=== PATIENT | male | born 1935 | race Caucasian/White ===

== ENCOUNTER 2017-01-09 14:37 | Inpatient (IN) | payer MEDICARE, OTHER ==
[~2017-01-09] VITALS: Ht 190.5 cm; Wt 93.9 kg
[2017-01-12] MEDS ORDERED: BUME0.5T PO (16:02)
[2017-01-12] MEDS ORDERED: FLEC1TAB9 PO (16:02)
[2017-01-12] MEDS ORDERED: LEVO50TA4 PO (16:02)
[2017-01-12] MEDS ORDERED: TERA2CAP3 PO (16:02)
[2017-01-12] MEDS ORDERED: ROSU10 PO (16:02)
[2017-01-12] MEDS ORDERED: DICL75TA PO (16:02)
[2017-01-12] MEDS ORDERED: METF500T PO (16:02)
[2017-01-12] MEDS ORDERED: OMEGCAP PO (16:02)
[2017-01-12] MEDS ORDERED: APIX5TAB PO (16:02)
[2017-01-12] MEDS ORDERED: LISI2.5T3 PO (16:02)
--- NOTE | 2017-01-28 07:03 | HHI.DCPOC ---
Discharge Care Plan Diagnosis: (1) Status post total hip replacement, left (2) Osteoarthritis of left hip Your Health Problems Are: Difficulty with ADL Goals to Promote Your Health * To prevent worsening of your condition and complications * To maintain your health at the optimal level Directions to Meet Your Goals Take your medications as prescribed Follow your dietary instruction Follow activity as directed Keep your appointments as scheduled Take your immunizations and boosters as scheduled If your symptoms worsen call your PCP, if no PCP go to Urgent Care Center or Emergency Room Smoking is Dangerous to Your Health. Avoid second hand smoke Call the 24-hour hour crisis hotline for domestic abuse at Jonny Patiño Jan 28, 2017 07:03
--- NOTE | 2017-01-28 07:03 | HHI.FF ---
Face to Face Verification Diagnosis: (1) Osteoarthritis of left hip (2) Status post total hip replacement, left Physical Therapy Gait training, Transfer training, bed to chair Hip: Total hip Left LE Weight Bearing: WB as tolerated Left LE Range of Motion: Active ROM Nursing Nursing: Dressing changes Dressing Changes: Daily dressing change I have seen patient Nadira Chavez on 01/28/17. My clinical findings support the need for the requested home health care services because: Limited ability to care for self High risk of falls I certify that my clinical findings support that this patient is homebound because: Post-op weakness Unsteady gait/balance Jonny Patiño Jan 28, 2017 07:03
[2017-01-28] MEDS ORDERED: COMMODE 3-IN-11 MIS (07:04)
[2017-01-28] MEDS ORDERED: WALKER WHEELS/F1 MIS (07:04)
[2017-01-28] MEDS ORDERED: DEXAMETHASONE SOD PHOS 20 MG/5 ML VIAL ONE (08:35)
[2017-01-28 08:38] VITALS: BP 166/92; PULSE 68; RESP 18; TEMP 98.6; O2SAT 100
[2017-01-28] MEDS ORDERED: SODIUM CHLORIDE 0.9% IV SCH (08:45)
[2017-01-28] MEDS ORDERED: METOPROLOL TARTRATE 25 MG TAB PO PRN (08:45)
[2017-01-28] MEDS ORDERED: SODIUM CHLORID 0.9% 500 ML IV SCH (08:45)
[2017-01-28] MEDS ORDERED: TRANEXAMIC ACID IV SCH (08:45)
[2017-01-28] MEDS ORDERED: INSULIN HUMAN REGULAR 1,000 UNITS/10 ML VIAL SQ PRN (08:45)
[2017-01-28] MEDS ORDERED: ceFAZolin 2 GM PREMIX 50 ML IV SCH (08:45)
[2017-01-28] MEDS ORDERED: VANCOMYCIN 1000 MG/NS 250 ML (for <70 kg) IV SCH ×2 (08:45)
[2017-01-28] MEDS: POVIDONE IODINE 7.5% SCRUB 118 ML BOTTLE TOPICAL SCH (08:45)
[2017-01-28] MEDS: LACTATED RINGER'S 1000 ML IV SCH (09:00)
[2017-01-28] MEDS ORDERED: GENTAMICIN SULFATE 80 MG/2 ML VIAL ONE (09:30)
[2017-01-28] MEDS ORDERED: EXPAREL PERI-ARTICULAR INJECTION (TOTAL VOL. 60 ML) P-ARTICULR SCH ×2 (10:00)
[2017-01-28] MEDS ORDERED: FAMOTIDINE 20 MG/2 ML VIAL ONE (10:06)
[2017-01-28] MEDS ORDERED: MIDAZOLAM HCL 2 MG/2 ML VIAL ONE (10:06)
[2017-01-28] MEDS ORDERED: ACETAMINOPHEN 1000 MG/100 ML VIAL IV ONE (10:06)
[2017-01-28] MEDS ORDERED: fentaNYL CITRATE 250 MCG/5 ML AMP ONE (10:06)
[2017-01-28] MEDS ORDERED: ONDANSETRON HCL 4 MG/2 ML VIAL IV PUSH ONE (12:00)
[2017-01-28] MEDS ORDERED: ePHEDrine/NS 25 MG/5 ML SYR IV ONE (12:00)
[2017-01-28] MEDS ORDERED: NEOSTIGMINE 3 MG/3 ML SYR IV ONE (12:00)
[2017-01-28] MEDS ORDERED: PROPOFOL 200 MG/20 ML AMP IV ONE (12:00)
[2017-01-28] MEDS ORDERED: LACTATED RINGER'S 1000 ML INJ 1,000 ML IV ONE (12:00)
[2017-01-28] MEDS ORDERED: SODIUM CHLORIDE 0.9% FLUSH 5 ML FLUSH IVF PRN (12:30)
[2017-01-28] MEDS ORDERED: ALUMINUM/MAGNESIUM/SIMETH 30 ML CUP PO PRN (12:30)
[2017-01-28] MEDS ORDERED: ZOLPIDEM TARTRATE 5 MG TAB PO PRN (12:30)
[2017-01-28] MEDS ORDERED: Post-op Orders (for Pharmacy) MISC XX ONE (12:30)
[2017-01-28] MEDS ORDERED: NALOXONE HCL 0.4 MG/ML AMP IV PRN (12:30)
[2017-01-28] MEDS ORDERED: BISACODYL 10 MG SUPP RECTAL PRN (12:30)
[2017-01-28] MEDS ORDERED: ONDANSETRON HCL 4 MG/2 ML VIAL IVP PRN (12:30)
[2017-01-28] MEDS ORDERED: MORPHINE SULFATE 4 MG/ML INJ IV PUSH PRN (12:30)
[2017-01-28] MEDS ORDERED: diphenhydrAMINE HCL 50 MG/ML VIAL IV PRN (12:30)
[2017-01-28] MEDS ORDERED: ENOXAPARIN SODIUM 40 MG/0.4 ML SYRINGE SQ SCH (12:30)
[2017-01-28] MEDS ORDERED: MAGNESIUM HYDROXIDE SUSP 30 ML CUP PO PRN (12:30)
[2017-01-28] MEDS ORDERED: ACETAMINOPHEN/HYDROcodone 325 MG/5 MG TAB PO PRN (12:30)
[2017-01-28] MEDS ORDERED: NORC5TAB PO (12:35)
--- NOTE | 2017-01-28 12:38 | PD.OP ---
cc: Emanuel Whitaker MD Operative Report Date of Surgery: Jan 28, 2017 Preoperative Diagnosis: Left hip severe osteoarthritis. Postoperative Diagnosis: Same Procedure: Left total hip arthroplasty Anesthesia: Gen. Surgeon: Emanuel Whitaker Deposit Refund Clerk(s): BERTHA Francis The surgical procedure was assisted by my Advanced Registered Nurse Practitioner. My WASHING TUB OPERATOR presence was necessary throughout this case for the manipulation and positioning of the surgical extremity. My WASHING TUB OPERATOR was assisting me throughout the duration of this procedure. The skill set of an Advance Registered Nurse Practitioner was medically necessary to complete this procedure. During the surgical case, the surgical oncologist was working at the back table and the Advance Registered Nurse Practitioner was directly assisting me. Operation and Findings: IMPLANT DESCRIPTION: 1. Mullen Gription Cup, acetabular size 58. 2. Mullen AltrX polyethylene, neutral. 4. Corail femoral stem size 15, no collar, high offset. 5. Femoral head/neck metal, 36, +5. ESTIMATED BLOOD LOSS: 350 cc. JUSTIFICATION FOR PROCEDURE: The patient has end-stage osteoarthritis to the hip. There is an attached conservative measures pathway form in the chart that describes the nonoperative measures that were undertaken prior to consideration of surgical management. The patient understood the risks and benefits of surgical management. See my office notes for further details. PROCEDURE: The patient was brought back to the operative theatre. Adequate anesthesia was obtained. The patient received intravenous vancomycin and Ancef. The patient was carefully placed on the operative table. The lower extremity was prepped and draped in the usual sterile fashion. Fluoroscopic images were obtained. We made a standard anterior incision over the hip. We dissected through the TFL fascia, exposing the anterior capsule. Arthrotomy was performed in a T-shaped fashion. The capsule was tagged with a #2 FiberWire. End-stage arthritis was identified. Osteotomy was performed through the femoral neck exposing the acetabulum. Remnants of the labrum were resected and osteophytes were removed. We sequentially reamed the acetabulum. We trialed the hip and placed the final cup into position. This was done under fluoroscopic guidance to obtain the appropriate inclination and anteversion. A manhole cover was placed into the acetabular component. We then placed the final polyethylene into position and confirmed that it was well seated. Capsular attachments on the calcar and the inner aspect of the greater trochanter were resected. On the proximal aspect of the femur we used a rongeur , box osteotome, canal finder, sequential broaches and lateralizing rasp. We calcar planed the proximal femur. Then thoroughly irrigated the wound. We trialed the hip with the appropriate size stem. We placed the final stem in to position and trialed again. The hip was stable while it was externally rotated 70 degrees when the leg was lowered to the floor. The final head was applied, and final fluoroscopic images were obtained. The wound was thoroughly irrigated again. Interarticular injection of liposomal bupivacaine was given. The capsule was closed with #2 FiberWire and #1 Vicryl. The deep fascia was closed with a #2 Stratafix, followed by 2-0 Vicryl in the skin and miguel. Postop plan is to weight-bear as tolerated. DVT prophylaxis will be performed with MAI Castro, early mobilization, and resuming Eliquis at a dose of 2.5 mg by mouth twice a day for 7 days and then the patient will resume the preoperative fall dose of 5 mg by mouth twice a day afterwards. The family has been instructed on these orders. Emanuel Whitaker MD Jan 28, 2017 12:38
[2017-01-28] MEDS ORDERED: *morphine SULFATE 8 MG/ML PERIprocedure ONLY ONE ×2 (13:17→13:52)
[2017-01-28] MEDS ORDERED: DO NOT ADM ANY ANTICOAGULANT DRUGS PRN (13:45)
--- NOTE | 2017-01-28 13:49 | RADRPT ---
EXAM DATE/TIME: 01/28/2017 13:05 [facility] COMPARISON: No previous studies available for comparison. INDICATIONS : Post op left hip surgery. MEDICAL HISTORY : Hypertension. Diabetes mellitus type I. SURGICAL HISTORY : Pacemaker. ENCOUNTER: Initial ACUITY: 1 day PAIN SCORE: Non-responsive. LOCATION: Left hip. FINDINGS: A left hip arthroplasty is present. The alignment is anatomic.. Previous right arthroplasty is presen t. CONCLUSION: 1. Postsurgical changes as above. Adalberto Krueger MD on January 28, 2017 at 13:46 Board Certified Radiologist. This report was verified electronically.
[2017-01-28] MEDS: SODIUM CHLOR 0.9% 1000 ML INJ 1,000 ML IV SCH (13:55)
[2017-01-28] MEDS ORDERED: TRANEXAMIC ACID INJ 900 MG in SODIUM CHLORIDE 0.9% INJ 100 ML IV SCH (14:00)
--- NOTE | 2017-01-28 14:45 | RADRPT ---
EXAM DATE/TIME: 01/28/2017 10:53 [facility] COMPARISON: No previous studies available for comparison. INDICATIONS : Left total hip arthroplasty. MEDICAL HISTORY : Unobtainable SURGICAL HISTORY : Unobtainable. ENCOUNTER: Initial ACUITY: 1 day PAIN SCORE: Non-responsive. LOCATION: Left hip. FINDINGS: Alignment is anatomic in this single AP projection. Fracture is not appreciated. CONCLUSION: Anatomic alignment. Xiang Emmanuel MD FACR on January 28, 2017 at 14:41 Board Certified Radiologist. This report was verified electronically.
--- NOTE | 2017-01-28 15:37 | PD.CONS ---
[facility] Request[facility] By Dr. Whitaker Reason for Consult medical management. Primary Care Physician Kai Foy MD Diagnoses: History of Present Illness This is a 81-year-old male past medical history of BPH, osteoarthritis, brainstem clot, type 2 diabetes, aortic stenosis, hypertension, hyperlipidemia, CVA, atrial fibrillation s/p pacemaker who presented for left hip arthroplasty that was done today. [facility] consulted for medical management. Patient no complains. Review of Systems Constitutional: DENIES: Diaphoretic episodes, Fatigue, Fever, Weight gain, Weight loss, Chills, Dizziness, Change in appetite, Night Sweats Endocrine: DENIES: Heat/cold intolerance, Polydipsia, Polyuria, Polyphagia Eyes: DENIES: Blurred vision, Diplopia, Eye inflammation, Eye pain, Vision loss , Photosensitivity, Double Vision Ears, nose, mouth, throat: DENIES: Tinnitus, Hearing loss, Vertigo, Nasal discharge, Oral lesions, Throat pain, Hoarseness, Ear Pain, Running Nose, Epistaxis, Sinus Pain, Toothache, Odynophagia Respiratory: DENIES: Apneas, Cough, Snoring, Wheezing, Hemoptysis, Sputum production, Shortness of breath Cardiovascular: DENIES: Chest pain, Palpitations, Syncope, Dyspnea on Exertion , PND, Lower Extremity Edema, Orthopnea, Claudication Gastrointestinal: DENIES: Abdominal pain, Black stools, Bloody stools, Constipation, Diarrhea, Nausea, Vomiting, Difficulty Swallowing, Anorexia Genitourinary: DENIES: Sexual dysfunction, Urinary frequency, Urinary incontinence, Urgency, Hematuria, Dysuria, Nocturia, Penile Discharge, Testicular Pain, Testicular Swelling Musculoskeletal: DENIES: Joint pain, Muscle aches, Stiffness, Joint Swelling, Back pain, Neck pain Integumentary: DENIES: Abnormal pigmentation, Nail changes, Pruritus, Rash Hematologic/lymphatic: DENIES: Bruising, Lymphadenopathy Immunologic/allergic: DENIES: Eczema, Urticaria Neurologic: DENIES: Abnormal gait, Headache, Localized weakness, Paresthesias, Seizures, Speech Problems, Tremor, Poor Balance Psychiatric: DENIES: Anxiety, Confusion, Mood changes, Depression, Hallucinations, Agitation, Suicidal Ideation, Homicidal Ideation, Delusions Past Family Social History Allergies: Uncoded Allergies: NYQUIL (Adverse Reaction, Unknown, 01/12/17) Past Medical History Osteoarthritis, BPH, 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, type 2 diabetes, aortic stenosis, hypertension, hyperlipidemia, CVA, age fibrillation Past Surgical History Tonsillectomy Pacemaker placement in 2009 Reported Medications Reported Meds & Active Scripts Active [place] (Hydrocodone-Acetaminophen) 5-325 mg Tab 1-2 Tab PO Q4H PRN Reported Bumetanide 0.5 Mg Tab 0.5 Mg PO DAILY Crestor (Rosuvastatin Calcium) 10 Mg Tab 10 Mg PO WEEKLY [place]-3 Fish Oil/Vitamin (Fish Oil-Cholecalciferol) 1,000-1,000 Mg Cap Unknown Dose PO DAILY Metformin (Metformin HCl) 500 Mg Tab 500 Mg PO BIDPC With meals Lisinopril 2.5 Mg Tab 2.5 Mg PO DAILY Diclofenac Sodium DR (Diclofenac Sodium) 75 Mg Tabdr 75 Mg PO HS Flecainide (Flecainide Acetate) 150 Mg Tab 150 Mg PO BID Eliquis (Apixaban) 5 Mg Tab 5 Mg PO BID Terazosin (Terazosin HCl) 2 Mg Cap 2 Mg PO HS Levothyroxine (Levothyroxine Sodium) 50 Mcg Tab 50 Mcg PO DAILY Active Ordered Medications Current Medications Povidone Iodine 1 applic 1 applic ONCE TOPICAL ; Start 01/28/17 at 08:45; Stop 01/31/17 at 08:44 Cefazolin Sodium/ Dextrose 50 ml @ 100 mls/hr PHYSICS PROFESSOR IV Last administered on 01/28/17 09:22; Start 01/28/17 at 08:45; Stop 01/31/17 at 08:44 Vancomycin HCl 1000 mg/Sodium Chloride 250 ml @ 250 mls/hr PHYSICS PROFESSOR IV Last administered on 01/28/17 09:37; Start 01/28/17 at 08:45; Stop 01/31/17 at 08:44 Lactated Ringer's 1,000 ml @ 30 mls/hr Q24H IV Last administered on 01/28/17 09:00; Start 01/28/17 at 08:45 Sodium Chloride (NS 500 ml Inj) 500 ml @ 30 mls/hr [id number] IV ; Start 01/28/17 at 08:45; Stop 01/29/17 at 08:44 Insulin Human Regular (NovoLIN R INJ) See Protocol Table ... UNSCH X1 PRN SQ SEE PROTOCOL; Start 01/28/17 at 08:45; Stop 01/29/17 at 08:44 Metoprolol Tartrate 25 mg 25 mg UNSCH X1 PRN PO SEE LABEL COMMENTS; Start 01/28 at 08:45; Stop 01/29/17 at 08:44 Tranexamic Acid/ Sodium Chloride (Cyklokapron Inj/ NS Inj) 109.03 ml @ 200 mls / hr ONCE IV Last administered on 01/28/17 10:31; Start 01/28/17 at 08:45; Stop 01/29/17 at 08:44 Dexamethasone Sodium Phosphate (Decadron Inj) 20 mg STK-MED ONCE .ROUTE Last administered on 01/28/17 09:13; Start 01/28/17 at 08:35; Stop 01/28/17 at 08:36 ; Status DC Gentamicin Sulfate 240 mg 240 mg STK-MED ONCE .ROUTE Last administered on 11:06; Start 01/28/17 at 09:30; Stop 01/28/17 at 09:31; Status DC Bupivacaine Liposome/Sodium Chloride (Exparel Pf 1.3% Inj/NS Inj) 60 ml @ 120 mls/hr ONCE P-ARTICULR Last administered on 01/28/17 11:06; Start 01/28/17 at 10:00; Stop 01/29/17 at 09:59 Acetaminophen (Ofirmev Inj) 1,000 mg STK-MED ONCE IV ; Start 01/28/17 at 10:06; Stop 01/28/17 at 10:07; Status DC Famotidine (Pepcid Inj) 20 mg STK-MED ONCE .ROUTE ; Start 01/28/17 at 10:06; Stop 01/28/17 at 10:07; Status DC Midazolam HCl (Versed Inj) 2 mg STK-MED ONCE .ROUTE ; Start 01/28/17 at 10:06; Stop 01/28/17 at 10:07; Status DC Fentanyl Citrate (fentaNYL INJ) 250 mcg STK-MED ONCE .ROUTE ; Start 01/28/17 at 10:06; Stop 01/28/17 at 10:07; Status DC Bumetanide (Bumetanide) 0.5 mg DAILY PO ; Start 01/29/17 at 09:00 Flecainide Acetate (Tambocor) 150 mg BID PO ; Start 01/28/17 at 21:00 Levothyroxine Sodium (Synthroid) 50 mcg DAILY@0600 PO ; Start 01/29/17 at 06:00 Metformin HCl (Glucophage) 500 mg BIDPC PO ; Start 01/29/17 at 09:00 Terazosin HCl (Hytrin) 2 mg HS PO ; Start 01/28/17 at 21:00 Lisinopril (Prinivil) 2.5 mg DAILY PO BPM; Start 01/29/17 at 09:00 Atorvastatin Calcium 20 mg 20 mg Q7D PO ; Start 01/29/17 at 09:00 Sodium Chloride (NS 1000 ml Inj) 1,000 ml @ 100 mls/hr Q10H IV Last administered on 01/28/17 13:55; Start 01/28/17 at 12:25 IV Flush (NS Flush) 2 ml UNSCH PRN IVF FLUSH AFTER USING IV ACCESS; Start 01/28 at 12:30 IV Flush (NS Flush) 2 ml BID IVF ; Start 01/28/17 at 21:00 Miscellaneous Information (Post-op Orders (for Pharmacy)) STAT ONCE XX ; Start 01/28/17 at 12:30; Stop 01/28/17 at 13:45; Status DC Dexamethasone Sodium Phosphate (Decadron Inj) 10 mg ONCE ONCE IV ; Start at 07:45; Stop 01/29/17 at 07:46 Enoxaparin Sodium (Lovenox Inj) 40 mg Q24H SQ ; Start 01/28/17 at 12:30; Stop at 12:30; Status DC Acetaminophen/ Hydrocodone Bitart ([place] 5-325 Mg) 1 tab Q4H PRN PO PAIN LESS THAN 5 ON SCALE; Start 01/28/17 at 12:30 Acetaminophen/ Hydrocodone Bitart 2 tab 2 tab Q4H PRN PO PAIN SCALE 5 TO 10; Start 01/28/17 at 12:30 Tranexamic Acid/ Sodium Chloride (Cyklokapron Inj/ NS Inj) 109 ml @ 200 mls/hr UNSCH IV Last administered on 01/28/17 14:00; Start 01/28/17 at 14:00; Stop at 14:33; Status DC Multivitamins/ Minerals Therapeutic (Theragran M Tab) 1 tab BID PO ; Start 01/29 at 21:00; Stop 03/30/17 at 20:59 Ondansetron HCl (Zofran Inj) 4 mg Q6H PRN IVP NAUSEA OR VOMITING; Start at 12:30 Docusate Sodium (Colace) 100 mg BID PO ; Start 01/29/17 at 21:00 Al Hydrox/Mg Hydrox/Simethicone (Mag-Al Plus Susp Liq) 30 ml Q6H PRN PO INDIGESTION; Start 01/28/17 at 12:30 Zolpidem Tartrate (Ambien) 5 mg HS PRN PO SLEEP; Start 01/28/17 at 12:30 Bisacodyl (Dulcolax Supp) 10 mg DAILY PRN RECTAL CONSTIPATION; Start 01/28/17 at 12:30 Magnesium Hydroxide (Milk Of Magnesia Liq) 30 ml DAILY PRN PO CONSTIPATION; Start 01/28/17 at 12:30 Naloxone HCl (Narcan Inj) 0.4 mg UNSCH PRN IV RESPIRATORY RATE LESS THAN 10; Start 01/28/17 at 12:30 Diphenhydramine HCl (Benadryl Inj) 25 mg Q6H PRN IV ITCHING; Start 01/28/17 at 12:30 Morphine Sulfate (Morphine Inj) 2 mg Q3H PRN IV PUSH pain greater than 5; Start 01/28/17 at 12:30 Apixaban (Eliquis) 2.5 mg BID PO ; Start 01/29/17 at 12:00 Fentanyl Citrate (fentaNYL INJ) 100 mcg STK-MED ONCE .ROUTE ; Start 01/28/17 at 12:58; Stop 01/28/17 at 12:59; Status DC Morphine Sulfate (*morphine INJ PERIprocedure ONLY) 8 mg STK-MED ONCE .ROUTE Last administered on 01/28/17t 13:17; Start 01/28/17 at 13:17; Stop 01/28/17 at 13:18; Status DC Miscellaneous Information ALL NURSING DEPARTME... UNSCH PRN .XX SEE LABEL COMMENTS; Start 01/28/17 at 13:45; Stop 01/29/17 at 13:44 Morphine Sulfate (*morphine INJ PERIprocedure ONLY) 8 mg STK-MED ONCE .ROUTE ; Start 01/28/17 at 13:52; Stop 01/28/17 at 13:53; Status DC Family History Noncontributory Social History Patient was at home with his . Smoked 1 pack per day for 20 years but stopped 34 years ago. Physical Exam Vital Signs Vital Signs Date Time Temp Pulse Resp B/P Pulse Ox O2 Delivery O2 Flow Rate FiO2 01/28/17 08:38 98.6 68 18 166/92 100 Physical Exam GENERAL: This is a well-nourished, well-developed patient, in no apparent distress. SKIN: No rashes, ecchymoses or lesions. Cool and dry. HEAD: Atraumatic. Normocephalic. No temporal or scalp tenderness. EYES: Pupils equal round and reactive. Extraocular motions intact. No scleral icterus. No injection or drainage. ENT: Nose without bleeding, purulent drainage or septal hematoma. Throat without erythema, tonsillar hypertrophy or exudate. Uvula midline. Airway patent. NECK: Trachea midline. No JVD or lymphadenopathy. Supple, nontender, no meningeal signs. CARDIOVASCULAR: Regular rate and rhythm without murmurs, gallops, or rubs. RESPIRATORY: Clear to auscultation. Breath sounds equal bilaterally. No wheezes , rales, or rhonchi. GASTROINTESTINAL: Abdomen soft, non-tender, nondistended. No hepato-splenomegaly , or palpable masses. No guarding. MUSCULOSKELETAL: Extremities without clubbing, cyanosis, or edema. No joint tenderness, effusion, or edema noted. No calf tenderness. Negative Homans sign bilaterally. NEUROLOGICAL: Awake and alert. Cranial nerves II through XII intact. Motor and sensory grossly within normal limits. Five out of 5 muscle strength in all muscle groups. Normal speech. Laboratory Laboratory Tests Test 01/28/17 08:39 Blood Type A POSITIVE Antibody Screen NEGATIVE Blood Bank Comment Imaging Last Impressions Hip and Pelvis X-Ray 01/28/17 0000 Signed Impressions: Service Date/Time: Saturday, January 28, 2017 13:05 - CONCLUSION: 1. Postsurgical changes as above. Adalberto Krueger MD Hip X-Ray 01/28/17 0000 Signed Impressions: Service Date/Time: Saturday, January 28, 2017 10:53 - CONCLUSION: Anatomic alignment. Xiang Emmanuel MD FACR Assessment and Plan Assessment and Plan 81-year-old male presented with severe left hip osteoarthritis Left hip osteoarthritis -failed medical management. -Status post left hip arthroplasty today on 01/28/[address] Whitaker. -Continue management per orthopedic surgeon. Atrial fibrillation status post pacemaker placement, chronic anticoagulation, type 2 diabetes, hypertension, hyperlipidemia, history of CVA -Resume home medication. -Eliquis was held by orthopedic. Recommend to restart eloquence was clear by or throat. DVT prophylaxis -On Lovenox Code Status full Discussed Condition With patient April Lea MD Jan 28, 2017 15:37
[2017-01-28 17:00] VITALS: BP 118/66; PULSE 62; RESP 16; TEMP 95.4; O2SAT 97
[2017-01-28] MEDS: ceFAZolin 1,000 MG/NS 100 ML IV SCH ×2 (18:28)
[2017-01-28 20:00] VITALS: BP 115/65; PULSE 62; RESP 16; TEMP 96.7; O2SAT 100
[2017-01-28] MEDS: FLECAINIDE ACETATE 100 MG TAB PO SCH (23:18)
[2017-01-28] MEDS: TERAZOSIN HCL 1 MG CAP PO SCH (23:18)
[2017-01-29] VITALS (9 sets, daily range): BP systolic 78–134; BP diastolic 42–67; PULSE 59–108; RESP 18–20; TEMP 95.6–98.6; O2SAT 94–100
[2017-01-29] MEDS: ceFAZolin 1,000 MG/NS 100 ML IV SCH ×4 (02:30→10:20)
[2017-01-29] MEDS: LEVOTHYROXINE SODIUM 50 MCG TAB PO SCH (04:32)
[2017-01-29] MEDS: SODIUM CHLORIDE 0.9% FLUSH 5 ML FLUSH IVF SCH ×2 (04:33→10:10)
[2017-01-29] MEDS: SODIUM CHLOR 0.9% 1000 ML INJ 1,000 ML IV SCH ×3 (04:33→18:25)
[2017-01-29 06:48] LABS: HEMATOCRIT 30.9 % (39.0-51.0); MEAN CELL VOLUME 90.2 FL (80.0-100.0); MEAN CORPUSCULAR HEMOGLOBIN 29.9 PG (27.0-34.0); MEAN CORPUSCULAR HGB CONC 33.1 % (32.0-36.0); PLATELET COUNT 126 TH/MM3 (150-450); RED BLOOD COUNT 3.43 MIL/MM3 (4.50-5.90); RED CELL DISTRIBUTION WIDTH 13.5 % (11.6-17.2); REVIEW FLAG FINAL; WHITE BLOOD COUNT 8.1 TH/MM3 (4.0-11.0)
[2017-01-29] MEDS ORDERED: DEXAMETHASONE SOD PHOS 20 MG/5 ML VIAL IV ONE (07:45)
[2017-01-29] MEDS: LACTATED RINGER'S 1000 ML IV SCH (08:45)
[2017-01-29] MEDS: POVIDONE IODINE 7.5% SCRUB 118 ML BOTTLE TOPICAL SCH (08:45)
[2017-01-29] MEDS: BUMETANIDE 1 MG TAB PO SCH (09:00)
[2017-01-29] MEDS ORDERED: ATORVASTATIN 20 MG TAB PO SCH (09:00)
[2017-01-29] MEDS: LISINOPRIL 5 MG TAB PO SCH (09:00)
--- NOTE | 2017-01-29 09:29 | HHI.PR ---
Subjective Remarks f/u for medical conditions. patient stated when he got up he felt lightheaded and got blurry vision. Denied any JACQUES, or focal neurological deficits. he stated this has happened to him in the past where it resolved on it's own. he has no eaten yet. Objective Vitals Vital Signs Date Time Temp Pulse Resp B/P Pulse Ox O2 Delivery O2 Flow Rate FiO2 01/29/17 08:00 95.6 62 18 116/62 99 01/29/17 04:00 97.9 61 20 89/54 98 01/29/17 00:00 97.2 61 20 92/58 100 01/28/17 20:00 96.7 62 16 115/65 100 01/28/17 17:00 95.4 62 16 118/66 97 01/28/17 14:00 97.5 60 14 118/67 97 Nasal Cannula 2 01/28/17 13:45 60 14 123/68 98 Nasal Cannula 2 01/28/17 13:30 60 14 121/76 95 Nasal Cannula 2 01/28/17 13:15 71 14 118/63 94 Nasal Cannula 3 01/28/17 13:00 60 14 148/83 95 Nasal Cannula 3 01/28/17 12:50 98.2 59 14 147/83 95 Nasal Cannula 3 I/O 01/28/17 01/28/17 01/28/17 01/29/17 01/29/17 01/29/17 07:00 15:00 23:00 07:00 15:00 23:00 Intake Total 1600 ml 240 ml 320 ml Output Total 1025 ml 650 ml 400 ml Balance 575 ml -410 ml -80 ml Intake Oral 240 ml 320 ml IV Total 100 ml Other 1500 ml Output Urine Total 725 ml 650 ml 400 ml Estimated Blood Loss 300 ml # Bowel Movements 0 0 Result Diagram: 01/29/17 0553 Objective Remarks GENERAL: in NAD sitting upright in chair. SKIN: Warm and dry. HEAD: Normocephalic. EYES: No scleral icterus. No injection or drainage. NECK: Supple, trachea midline. No JVD or lymphadenopathy. CARDIOVASCULAR: Regular rate and rhythm without murmurs, gallops, or rubs. RESPIRATORY: Breath sounds equal bilaterally. No accessory muscle use. GASTROINTESTINAL: Abdomen soft, non-tender, nondistended. MUSCULOSKELETAL: No cyanosis, or edema. BACK: Nontender without obvious deformity. No CVA tenderness. NEURO: AAO X3. CN 2-12 intact. motor and sensory grossly intact. Medications and IVs Current Medications Povidone Iodine 1 applic 1 applic ONCE TOPICAL ; Start 01/28/17 at 08:45; Stop 01/31/17 at 08:44 Cefazolin Sodium/ Dextrose 50 ml @ 100 mls/hr PULLMAN CLERK IV Last administered on 01/28/17 09:22; Start 01/28/17 at 08:45; Stop 01/31/17 at 08:44 Vancomycin HCl 1000 mg/Sodium Chloride 250 ml @ 250 mls/hr PULLMAN CLERK IV Last administered on 01/28/17 09:37; Start 01/28/17 at 08:45; Stop 01/31/17 at 08:44 Lactated Ringer's 1,000 ml @ 30 mls/hr Q24H IV Last administered on 01/28/17 09:00; Start 01/28/17 at 08:45 Sodium Chloride (NS 500 ml Inj) 500 ml @ 30 mls/hr [id number] IV ; Start 01/28/17 at 08:45; Stop 01/29/17 at 08:44; Status DC Insulin Human Regular (NovoLIN R INJ) See Protocol Table ... UNSCH X1 PRN SQ SEE PROTOCOL; Start 01/28/17 at 08:45; Stop 01/29/17 at 08:44; Status DC Metoprolol Tartrate 25 mg 25 mg UNSCH X1 PRN PO SEE LABEL COMMENTS; Start 01/28 at 08:45; Stop 01/29/17 at 08:44; Status DC Tranexamic Acid/ Sodium Chloride (Cyklokapron Inj/ NS Inj) 109.03 ml @ 200 mls / hr ONCE IV Last administered on 01/28/17 10:31; Start 01/28/17 at 08:45; Stop 01/29/17 at 08:44; Status DC Dexamethasone Sodium Phosphate (Decadron Inj) 20 mg STK-MED ONCE .ROUTE Last administered on 01/28/17 09:13; Start 01/28/17 at 08:35; Stop 01/28/17 at 08:36 ; Status DC Gentamicin Sulfate 240 mg 240 mg STK-MED ONCE .ROUTE Last administered on 11:06; Start 01/28/17 at 09:30; Stop 01/28/17 at 09:31; Status DC Bupivacaine Liposome/Sodium Chloride (Exparel Pf 1.3% Inj/NS Inj) 60 ml @ 120 mls/hr ONCE P-ARTICULR Last administered on 01/28/17 11:06; Start 01/28/17 at 10:00; Stop 01/29/17 at 09:59 Acetaminophen (Ofirmev Inj) 1,000 mg STK-MED ONCE IV ; Start 01/28/17 at 10:06; Stop 01/28/17 at 10:07; Status DC Famotidine (Pepcid Inj) 20 mg STK-MED ONCE .ROUTE ; Start 01/28/17 at 10:06; Stop 01/28/17 at 10:07; Status DC Midazolam HCl (Versed Inj) 2 mg STK-MED ONCE .ROUTE ; Start 01/28/17 at 10:06; Stop 01/28/17 at 10:07; Status DC Fentanyl Citrate (fentaNYL INJ) 250 mcg STK-MED ONCE .ROUTE ; Start 01/28/17 at 10:06; Stop 01/28/17 at 10:07; Status DC Bumetanide (Bumetanide) 0.5 mg DAILY PO ; Start 01/29/17 at 09:00 Flecainide Acetate (Tambocor) 150 mg BID PO Last administered on 01/28/17 23: 18; Start 01/28/17 at 21:00 Levothyroxine Sodium (Synthroid) 50 mcg DAILY@0600 PO Last administered on 01/29 04:32; Start 01/29/17 at 06:00 Metformin HCl (Glucophage) 500 mg BIDPC PO ; Start 01/29/17 at 09:00 Terazosin HCl (Hytrin) 2 mg HS PO Last administered on 01/28/17 23:18; Start 01/28/17 at 21:00 Lisinopril (Prinivil) 2.5 mg DAILY PO BPM; Start 01/29/17 at 09:00 Atorvastatin Calcium 20 mg 20 mg Q7D PO ; Start 01/29/17 at 09:00 Sodium Chloride (NS 1000 ml Inj) 1,000 ml @ 100 mls/hr Q10H IV Last administered on 01/29/17 04:33; Start 01/28/17 at 12:25 IV Flush (NS Flush) 2 ml UNSCH PRN IVF FLUSH AFTER USING IV ACCESS; Start 01/28 at 12:30 IV Flush (NS Flush) 2 ml BID IVF Last administered on 01/29/17t 04:33; Start at 21:00 Miscellaneous Information (Post-op Orders (for Pharmacy)) STAT ONCE XX ; Start 01/28/17 at 12:30; Stop 01/28/17 at 13:45; Status DC Dexamethasone Sodium Phosphate (Decadron Inj) 10 mg ONCE ONCE IV ; Start at 07:45; Stop 01/29/17 at 07:46; Status DC Enoxaparin Sodium (Lovenox Inj) 40 mg Q24H SQ ; Start 01/28/17 at 12:30; Stop at 12:30; Status DC Acetaminophen/ Hydrocodone Bitart ([place] 5-325 Mg) 1 tab Q4H PRN PO PAIN LESS THAN 5 ON SCALE; Start 01/28/17 at 12:30 Acetaminophen/ Hydrocodone Bitart 2 tab 2 tab Q4H PRN PO PAIN SCALE 5 TO 10; Start 01/28/17 at 12:30 Tranexamic Acid/ Sodium Chloride (Cyklokapron Inj/ NS Inj) 109 ml @ 200 mls/hr UNSCH IV Last administered on 01/28/17t 14:00; Start 01/28/17 at 14:00; Stop at 14:33; Status DC Multivitamins/ Minerals Therapeutic (Theragran M Tab) 1 tab BID PO ; Start 01/29 at 21:00; Stop 03/30/17 at 20:59 Ondansetron HCl (Zofran Inj) 4 mg Q6H PRN IVP NAUSEA OR VOMITING; Start at 12:30 Docusate Sodium (Colace) 100 mg BID PO ; Start 01/29/17 at 21:00 Al Hydrox/Mg Hydrox/Simethicone (Mag-Al Plus Susp Liq) 30 ml Q6H PRN PO INDIGESTION; Start 01/28/17 at 12:30 Zolpidem Tartrate (Ambien) 5 mg HS PRN PO SLEEP; Start 01/28/17 at 12:30 Bisacodyl (Dulcolax Supp) 10 mg DAILY PRN RECTAL CONSTIPATION; Start 01/28/17 at 12:30 Magnesium Hydroxide (Milk Of Magnesia Liq) 30 ml DAILY PRN PO CONSTIPATION; Start 01/28/17 at 12:30 Naloxone HCl (Narcan Inj) 0.4 mg UNSCH PRN IV RESPIRATORY RATE LESS THAN 10; Start 01/28/17 at 12:30 Diphenhydramine HCl (Benadryl Inj) 25 mg Q6H PRN IV ITCHING; Start 01/28/17 at 12:30 Morphine Sulfate (Morphine Inj) 2 mg Q3H PRN IV PUSH pain greater than 5; Start 01/28/17 at 12:30 Apixaban (Eliquis) 2.5 mg BID PO ; Start 01/29/17 at 12:00 Fentanyl Citrate (fentaNYL INJ) 100 mcg STK-MED ONCE .ROUTE ; Start 01/28/17 at 12:58; Stop 01/28/17 at 12:59; Status DC Morphine Sulfate (*morphine INJ PERIprocedure ONLY) 8 mg STK-MED ONCE .ROUTE Last administered on 01/28/17 13:17; Start 01/28/17 at 13:17; Stop 01/28/17 at 13:18; Status DC Miscellaneous Information ALL NURSING DEPARTME... UNSCH PRN .XX SEE LABEL COMMENTS; Start 01/28/17 at 13:45; Stop 01/29/17 at 13:44 Morphine Sulfate 8 mg 8 mg STK-MED ONCE .ROUTE ; Start 01/28/17 at 13:52; Stop 01/28/17 at 13:53; Status DC Cefazolin Sodium/ Sodium Chloride (Ancef Inj/NS Inj) 100 ml @ 200 mls/hr Q8H IV Last administered on 01/29/17 02:30; Start 01/28/17 at 18:30; Stop at 10:59 A/P Assessment and Plan 81-year-old male presented with severe left hip osteoarthritis Lightheadedness/burry vision -Pat occurrence where this resolved on own. -patient has a couple low BP readings but last reading normotensive. -will recheck BP and blood sugar. -continue to monitor. Left hip osteoarthritis -failed medical management. -Status post left hip arthroplasty on 01/28/[address] Whitaker. -Continue management per orthopedic surgeon. Atrial fibrillation status post pacemaker placement, chronic anticoagulation, type 2 diabetes, hypertension, hyperlipidemia, history of CVA -continue with home medication. DVT prophylaxis -On April Doe MD Jan 29, 2017 09:29
[2017-01-29] MEDS: metFORMIN HCL 500 MG TAB PO SCH ×2 (10:07→17:40)
[2017-01-29] MEDS: FLECAINIDE ACETATE 100 MG TAB PO SCH ×2 (10:19→23:19)
[2017-01-29] MEDS: ACETAMINOPHEN/HYDROcodone 325 MG/5 MG TAB PO PRN ×3 (11:16→23:19)
--- NOTE | 2017-01-29 12:49 | PD.ORT.PN ---
Subjective Post Op Day #: 1 Subjective Remarks Patient is resting comfortably in bed with mild pain to the left hip. Patient is voiding and ambulatory. Patient requesting another night before discharge. Objective Vitals Vital Signs Date Time Temp Pulse Resp B/P Pulse Ox O2 Delivery O2 Flow Rate FiO2 01/29/17 12:00 96.5 105 19 80/53 96 01/29/17 10:00 97 21 01/29/17 08:00 95.6 62 18 116/62 99 01/29/17 04:00 97.9 61 20 89/54 98 01/29/17 00:00 97.2 61 20 92/58 100 01/28/17 20:00 96.7 62 16 115/65 100 01/28/17 17:00 95.4 62 16 118/66 97 01/28/17 14:00 97.5 60 14 118/67 97 Nasal Cannula 2 01/28/17 13:45 60 14 123/68 98 Nasal Cannula 2 01/28/17 13:30 60 14 121/76 95 Nasal Cannula 2 01/28/17 13:15 71 14 118/63 94 Nasal Cannula 3 01/28/17 13:00 60 14 148/83 95 Nasal Cannula 3 01/28/17 12:50 98.2 59 14 147/83 95 Nasal Cannula 3 I/O 01/28/17 01/28/17 01/28/17 01/29/17 01/29/17 01/29/17 07:00 15:00 23:00 07:00 15:00 23:00 Intake Total 1600 ml 240 ml 320 ml Output Total 1025 ml 650 ml 400 ml Balance 575 ml -410 ml -80 ml Intake Oral 240 ml 320 ml IV Total 100 ml Other 1500 ml Output Urine Total 725 ml 650 ml 400 ml Estimated Blood Loss 300 ml # Bowel Movements 0 0 Result Diagram: 01/29/17 0553 Procedures Left KENZIE Objective Remarks The patient's dressing was changed with scant serosanguineous drainage. Incision is well approximated with surgical clips intact. No redness or s/s of infection. EHL/TA/G intact. 2+ pedal pulse. Minimal swelling. Calf is soft and nontender. + SILT Assessment & Plan Ortho Post Op Day #: 1 Problem List: Assessment and Plan POD #1: Left KENZIE 1. WBAT LLE 2. Eliquis for DVT prophylaxis. Patient should take 2.5 mg BID for 7 days and then transition back to regular dose of 5 mg BID. 3. Ice to the left knee PRN 4. Anticipatory discharge home with home health on Thursday. 5. Recheck BP and HR of patient now. Jonny Patiño Jan 29, 2017 12:49
[2017-01-29] MEDS: APIXABAN 2.5 MG TABLET PO SCH ×2 (13:06→23:20)
[2017-01-29] MEDS: TERAZOSIN HCL 1 MG CAP PO SCH (21:00)
[2017-01-29] MEDS: DOCUSATE SODIUM 100 MG CAP PO SCH (23:19)
[2017-01-29] MEDS: MULTIVITAMINS/MINERALS THERAPEUTIC TAB PO SCH (23:19)
[2017-01-30] VITALS: BP 111/59; PULSE 98; RESP 17; TEMP 98.2; O2SAT 93
[2017-01-30 04:00] VITALS: BP 120/61; PULSE 91; RESP 16; TEMP 96.4; O2SAT 93
[2017-01-30] MEDS: ACETAMINOPHEN/HYDROcodone 325 MG/5 MG TAB PO PRN ×2 (06:21→12:29)
[2017-01-30] MEDS: LEVOTHYROXINE SODIUM 50 MCG TAB PO SCH (06:23)
[2017-01-30 06:42] LABS: HEMATOCRIT 29.4 % (39.0-51.0); MEAN CELL VOLUME 88.7 FL (80.0-100.0); MEAN CORPUSCULAR HEMOGLOBIN 30.4 PG (27.0-34.0); MEAN CORPUSCULAR HGB CONC 34.2 % (32.0-36.0); PLATELET COUNT 127 TH/MM3 (150-450); RED BLOOD COUNT 3.31 MIL/MM3 (4.50-5.90); RED CELL DISTRIBUTION WIDTH 13.6 % (11.6-17.2); REVIEW FLAG FINAL; WHITE BLOOD COUNT 9.1 TH/MM3 (4.0-11.0)
[2017-01-30] MEDS: MULTIVITAMINS/MINERALS THERAPEUTIC TAB PO SCH (07:57)
[2017-01-30] MEDS: metFORMIN HCL 500 MG TAB PO SCH (07:57)
[2017-01-30] MEDS: DOCUSATE SODIUM 100 MG CAP PO SCH (07:57)
[2017-01-30] MEDS: LISINOPRIL 5 MG TAB PO SCH (07:58)
[2017-01-30] MEDS: BUMETANIDE 1 MG TAB PO SCH (07:58)
[2017-01-30 08:00] VITALS: BP 127/60; PULSE 62; RESP 18; TEMP 95.8; O2SAT 93
[2017-01-30] MEDS: FLECAINIDE ACETATE 100 MG TAB PO SCH (08:01)
[2017-01-30] MEDS: APIXABAN 2.5 MG TABLET PO SCH (08:01)
[2017-01-30] MEDS: POVIDONE IODINE 7.5% SCRUB 118 ML BOTTLE TOPICAL SCH (08:45)
[2017-01-30] MEDS: LACTATED RINGER'S 1000 ML IV SCH (08:45)
[2017-01-30] MEDS: SODIUM CHLORIDE 0.9% FLUSH 5 ML FLUSH IVF SCH (09:00)
[2017-01-30 12:00] VITALS: BP 115/63; PULSE 75; RESP 19; TEMP 96.5; O2SAT 97
--- NOTE | 2017-01-30 15:22 | HHI.PR ---
Subjective Remarks f/u for lightheadedness and blurry vision patient stated that it resolved after I saw him yesterday. denied any blurry vision and lightheadedness. Objective Vitals Vital Signs Date Time Temp Pulse Resp B/P Pulse Ox O2 Delivery O2 Flow Rate FiO2 01/30/17 12:00 96.5 75 19 115/63 97 01/30/17 08:00 95.8 62 18 127/60 93 01/30/17 04:00 96.4 91 16 120/61 93 01/30/17 00:00 98.2 98 17 111/59 93 01/29/17 22:26 59 18 106/58 96 78/42 95/49 01/29/17 20:00 98.1 64 18 117/53 94 01/29/17 16:00 98.6 67 18 134/63 96 I/O 01/29/17 01/29/17 01/29/17 01/30/17 01/30/17 01/30/17 07:00 15:00 23:00 07:00 15:00 23:00 Intake Total 320 ml 720 ml 240 ml 360 ml Output Total 400 ml 200 ml 500 ml 675 ml Balance -80 ml 520 ml -260 ml -315 ml Intake Oral 320 ml 720 ml 240 ml 360 ml Output Urine Total 400 ml 200 ml 500 ml 675 ml # Voids 2 # Bowel Movements 0 0 0 1 Result Diagram: 01/30/17 0600 Objective Remarks GENERAL: in NAD sitting upright in chair. SKIN: Warm and dry. HEAD: Normocephalic. EYES: No scleral icterus. No injection or drainage. NECK: Supple, trachea midline. No JVD or lymphadenopathy. CARDIOVASCULAR: Regular rate and rhythm without murmurs, gallops, or rubs. RESPIRATORY: Breath sounds equal bilaterally. No accessory muscle use. GASTROINTESTINAL: Abdomen soft, non-tender, nondistended. MUSCULOSKELETAL: No cyanosis, or edema. BACK: Nontender without obvious deformity. No CVA tenderness. NEURO: AAO X3. CN 2-12 intact. motor and sensory grossly intact. Medications and IVs Current Medications Povidone Iodine 1 applic 1 applic ONCE TOPICAL ; Start 01/28/17 at 08:45; Stop 01/30/17 at 12:56; Status DC Cefazolin Sodium/ Dextrose 50 ml @ 100 mls/hr DAM OPERATOR IV Last administered on 01/28/17 09:22; Start 01/28/17 at 08:45; Stop 01/30/17 at 12:56; Status DC Vancomycin HCl 1000 mg/Sodium Chloride 250 ml @ 250 mls/hr DAM OPERATOR IV Last administered on 01/28/17 09:37; Start 01/28/17 at 08:45; Stop 01/30/17 at 12:56 ; Status DC Lactated Ringer's 1,000 ml @ 30 mls/hr Q24H IV Last administered on 01/28/17 09:00; Start 01/28/17 at 08:45; Stop 01/30/17 at 12:56; Status DC Sodium Chloride (NS 500 ml Inj) 500 ml @ 30 mls/hr [id number] IV ; Start 01/28/17 at 08:45; Stop 01/29/17 at 08:44; Status DC Insulin Human Regular (NovoLIN R INJ) See Protocol Table ... UNSCH X1 PRN SQ SEE PROTOCOL; Start 01/28/17 at 08:45; Stop 01/29/17 at 08:44; Status DC Metoprolol Tartrate 25 mg 25 mg UNSCH X1 PRN PO SEE LABEL COMMENTS; Start 01/28 at 08:45; Stop 01/29/17 at 08:44; Status DC Tranexamic Acid/ Sodium Chloride (Cyklokapron Inj/ NS Inj) 109.03 ml @ 200 mls / hr ONCE IV Last administered on 01/28/17 10:31; Start 01/28/17 at 08:45; Stop 01/29/17 at 08:44; Status DC Dexamethasone Sodium Phosphate (Decadron Inj) 20 mg STK-MED ONCE .ROUTE Last administered on 01/28/17 09:13; Start 01/28/17 at 08:35; Stop 01/28/17 at 08:36 ; Status DC Gentamicin Sulfate 240 mg 240 mg STK-MED ONCE .ROUTE Last administered on 11:06; Start 01/28/17 at 09:30; Stop 01/28/17 at 09:31; Status DC Bupivacaine Liposome/Sodium Chloride (Exparel Pf 1.3% Inj/NS Inj) 60 ml @ 120 mls/hr ONCE P-ARTICULR Last administered on 01/28/17 11:06; Start 01/28/17 at 10:00; Stop 01/29/17 at 09:59; Status DC Acetaminophen (Ofirmev Inj) 1,000 mg STK-MED ONCE IV ; Start 01/28/17 at 10:06; Stop 01/28/17 at 10:07; Status DC Famotidine (Pepcid Inj) 20 mg STK-MED ONCE .ROUTE ; Start 01/28/17 at 10:06; Stop 01/28/17 at 10:07; Status DC Midazolam HCl (Versed Inj) 2 mg STK-MED ONCE .ROUTE ; Start 01/28/17 at 10:06; Stop 01/28/17 at 10:07; Status DC Fentanyl Citrate (fentaNYL INJ) 250 mcg STK-MED ONCE .ROUTE ; Start 01/28/17 at 10:06; Stop 01/28/17 at 10:07; Status DC Bumetanide (Bumetanide) 0.5 mg DAILY PO ; Start 01/29/17 at 09:00; Stop at 12:56; Status DC Flecainide Acetate (Tambocor) 150 mg BID PO Last administered on 01/30/17 08: 01; Start 01/28/17 at 21:00; Stop 01/30/17 at 12:56; Status DC Levothyroxine Sodium (Synthroid) 50 mcg DAILY@0600 PO Last administered on 01/30 06:23; Start 01/29/17 at 06:00; Stop 01/30/17 at 12:56; Status DC Metformin HCl (Glucophage) 500 mg BIDPC PO Last administered on 01/30/17 07:57 ; Start 01/29/17 at 09:00; Stop 01/30/17 at 12:56; Status DC Terazosin HCl (Hytrin) 2 mg HS PO Last administered on 01/28/17 23:18; Start 01/28/17 at 21:00; Stop 01/30/17 at 12:56; Status DC Lisinopril (Prinivil) 2.5 mg DAILY PO BPM; Start 01/29/17 at 09:00; Stop at 12:56; Status DC Atorvastatin Calcium 20 mg 20 mg Q7D PO Last administered on 3/30/17at 10:07; Start 01/29/17 at 09:00; Stop 01/30/17 at 12:56; Status DC Sodium Chloride (NS 1000 ml Inj) 1,000 ml @ 100 mls/hr Q10H IV Last administered on 01/29/17 04:33; Start 01/28/17 at 12:25; Stop 01/30/17 at 12:56 ; Status DC IV Flush (NS Flush) 2 ml UNSCH PRN IVF FLUSH AFTER USING IV ACCESS; Start 01/28 at 12:30; Stop 01/30/17 at 12:56; Status DC IV Flush (NS Flush) 2 ml BID IVF Last administered on 01/30/17 09:00; Start at 21:00; Stop 01/30/17 at 12:56; Status DC Miscellaneous Information (Post-op Orders (for Pharmacy)) STAT ONCE XX ; Start 01/28/17 at 12:30; Stop 01/28/17 at 13:45; Status DC Dexamethasone Sodium Phosphate (Decadron Inj) 10 mg ONCE ONCE IV Last administered on 01/29/17 10:07; Start 01/29/17 at 07:45; Stop 01/29/17 at 07:46 ; Status DC Enoxaparin Sodium (Lovenox Inj) 40 mg Q24H SQ ; Start 01/28/17 at 12:30; Stop at 12:30; Status DC Acetaminophen/ Hydrocodone Bitart ([place] 5-325 Mg) 1 tab Q4H PRN PO PAIN LESS THAN 5 ON SCALE Last administered on 01/30/17 12:29; Start 01/28/17 at 12:30; Stop 01/30/17 at 12:56; Status DC Acetaminophen/ Hydrocodone Bitart 2 tab 2 tab Q4H PRN PO PAIN SCALE 5 TO 10; Start 01/28/17 at 12:30; Stop 01/30/17 at 12:56; Status DC Tranexamic Acid/ Sodium Chloride (Cyklokapron Inj/ NS Inj) 109 ml @ 200 mls/hr UNSCH IV Last administered on 01/28/17 14:00; Start 01/28/17 at 14:00; Stop at 14:33; Status DC Multivitamins/ Minerals Therapeutic (Theragran M Tab) 1 tab BID PO Last administered on 01/30/17 07:57; Start 01/29/17 at 21:00; Stop 01/30/17 at 12:56 ; Status DC Ondansetron HCl (Zofran Inj) 4 mg Q6H PRN IVP NAUSEA OR VOMITING; Start at 12:30; Stop 01/30/17 at 12:56; Status DC Docusate Sodium (Colace) 100 mg BID PO Last administered on 01/30/17 07:57; Start 01/29/17 at 21:00; Stop 01/30/17 at 12:56; Status DC Al Hydrox/Mg Hydrox/Simethicone (Mag-Al Plus Susp Liq) 30 ml Q6H PRN PO INDIGESTION; Start 01/28/17 at 12:30; Stop 01/30/17 at 12:56; Status DC Zolpidem Tartrate (Ambien) 5 mg HS PRN PO SLEEP; Start 01/28/17 at 12:30; Stop 01/30/17 at 12:56; Status DC Bisacodyl (Dulcolax Supp) 10 mg DAILY PRN RECTAL CONSTIPATION; Start 01/28/17 at 12:30; Stop 01/30/17 at 12:56; Status DC Magnesium Hydroxide (Milk Of Magnesia Liq) 30 ml DAILY PRN PO CONSTIPATION Last administered on 01/30/17 08:12; Start 01/28/17 at 12:30; Stop 01/30/17 at 12:56; Status DC Naloxone HCl (Narcan Inj) 0.4 mg UNSCH PRN IV RESPIRATORY RATE LESS THAN 10; Start 01/28/17 at 12:30; Stop 01/30/17 at 12:56; Status DC Diphenhydramine HCl (Benadryl Inj) 25 mg Q6H PRN IV ITCHING; Start 01/28/17 at 12:30; Stop 01/30/17 at 12:56; Status DC Morphine Sulfate (Morphine Inj) 2 mg Q3H PRN IV PUSH pain greater than 5; Start 01/28/17 at 12:30; Stop 01/30/17 at 12:56; Status DC Apixaban (Eliquis) 2.5 mg BID PO Last administered on 01/30/17 08:01; Start at 12:00; Stop 01/30/17 at 12:56; Status DC Fentanyl Citrate (fentaNYL INJ) 100 mcg STK-MED ONCE .ROUTE ; Start 01/28/17 at 12:58; Stop 01/28/17 at 12:59; Status DC Morphine Sulfate (*morphine INJ PERIprocedure ONLY) 8 mg STK-MED ONCE .ROUTE Last administered on 01/28/17 13:17; Start 01/28/17 at 13:17; Stop 01/28/17 at 13:18; Status DC Miscellaneous Information ALL NURSING DEPARTME... UNSCH PRN .XX SEE LABEL COMMENTS; Start 01/28/17 at 13:45; Stop 01/29/17 at 13:44; Status DC Morphine Sulfate 8 mg 8 mg STK-MED ONCE .ROUTE ; Start 01/28/17 at 13:52; Stop 01/28/17 at 13:53; Status DC Cefazolin Sodium/ Sodium Chloride (Ancef Inj/NS Inj) 100 ml @ 200 mls/hr Q8H IV Last administered on 01/29/17t 10:20; Start 01/28/17 at 18:30; Stop at 10:59; Status DC A/P Assessment and Plan 81-year-old male presented with severe left hip osteoarthritis Lightheadedness/burry vision -RESOLVED. -most likely due low BP yesterday that resolved. Left hip osteoarthritis -failed medical management. -Status post left hip arthroplasty on 01/28/[address] Whitaker. -Continue management per orthopedic surgeon. -patient cleared for discharge. Atrial fibrillation status post pacemaker placement, chronic anticoagulation, type 2 diabetes, hypertension, hyperlipidemia, history of CVA -continue with home medication. DVT prophylaxis -On Lovenox Discharge Planning patient stable and medical cleared for discharge. April Lea MD Jan 30, 2017 15:22
--- NOTE | 2017-02-01 13:39 | HHI.DS ---
Discharge Summary Admission Date Jan 28, 2017 at 06:49 Discharge Date: Jan 30, 2017 Admitting Diagnosis OA of the left hip Status post total hip replacement, left Diagnosis: (1) Osteoarthritis of left hip Diagnosis: Principal (2) Status post total hip replacement, left Diagnosis: Principal Procedures Left KENZIE Brief History This is a 81 year old male patient with severe OA of the left hip. CBC/BMP: 01/30/17 0600 Significant Findings Laboratory Tests Test 01/30/17 06:00 Red Blood Count 3.31 MIL/MM3 (4.50-5.90) Hemoglobin 10.1 GM/DL (13.0-17.0) Hematocrit 29.4 % (39.0-51.0) Platelet Count 127 TH/MM3 (150-450) PE at Discharge The patient's dressing was changed with scant serosanguineous drainage. Incision is well approximated with surgical clips intact. No redness or s/s of infection. EHL/TA/G intact. 2+ pedal pulse. Minimal swelling. Calf is soft and nontender. + SILT Hospital Course The patient was admitted to the hospital for severe OA of the left hip to have a left KENZIE. The patient's surgery went well with no complications. The patient was WBAT. The patient was on a diabetic diet. The patient was placed on Eliquis for DVT prophylaxis. The patient was discharged home with home health. The patient will f/u with Dr. Whitaker in 1-2 weeks. Pt Condition on Discharge: Stable Discharge Disposition: Disch w/ Home Health Serv Discharge Instructions Diet Instructions: Diabetic Diet Activities You Can Perform: Weight Bearing as [place] Activities to Avoid: Strenuous Activity Follow up Referrals: Orthopedics with Emanuel Whitaker MD [facility]/ with Nurse pianos and organs salesperson [phone] New Medications: Commode 3-in-1 (Commode 3-in-1) 1 Mis Mis 1 EA .ROUTE DIRECTED #1 Ref 0 EA Hydrocodone-Acetaminophen ([place]) 5-325 mg Tab 1-2 TAB PO Q4H PRN PAIN #60 Ref 0 TAB Walker with Front Wheels (Walker with Front Wheels) 1 Mis Mis 1 EA .ROUTE DIRECTED #1 Ref 0 EA Continued Medications: Apixaban (Eliquis) 5 Mg Tab 5 MG PO BID Blood Clot Prevention #60 Ref 0 TAB Bumetanide (Bumetanide) 0.5 Mg Tab 0.5 MG PO DAILY Ref 0 TAB Flecainide (Flecainide) 150 Mg Tab 150 MG PO BID Regulate Heart Beat #60 Ref 0 TAB Levothyroxine (Levothyroxine) 50 Mcg Tab 50 MCG PO DAILY Thyroid #30 Ref 0 TAB Lisinopril (Lisinopril) 2.5 Mg Tab 2.5 MG PO DAILY #30 Ref 0 TAB Metformin (Metformin) 500 Mg Tab 500 MG PO BIDPC With meals Blood Sugar Management #60 Ref 0 TAB Rosuvastatin (Crestor) 10 Mg Tab 10 MG PO WEEKLY Cholesterol Management #30 Ref 0 TAB Terazosin (Terazosin) 2 Mg Cap 2 MG PO HS #30 Ref 0 CAP Discontinued Medications: Diclofenac Sodium DR (Diclofenac Sodium DR) 75 Mg Tabdr 75 MG PO HS #60 Ref 0 TAB Fish Oil-Cholecalciferol ([place]-3 Fish Oil/Vitamin) 1,000-1,000 Mg Cap Unknown Dose PO DAILY Nutritional Supplement Ref 0 CAP Jonny Patiño Feb 01, 2017 13:38
== END 2017-01-30 12:56 | disposition home health service (06) | DRG 470 ==
LOC: HSDI 01-28 06:49 → N06B 01-28 15:52
PROVIDERS: ADMIT Orthopaedic Surgery; ATTEND Orthopaedic Surgery
PROC: 0SRB02A Replacement of Left Hip Joint with Metal on Polyethylene Synthetic Substitute, Uncemented, Open Approach (ICD-10-PCS; principal; 2017-01-28 10:06)
DX: M16.12 Unilateral primary osteoarthritis, left hip (principal); I95.9 Hypotension, unspecified; I48.91 Unspecified atrial fibrillation; E11.9 Type 2 diabetes mellitus without complications; I35.0 Nonrheumatic aortic (valve) stenosis; I10 Essential (primary) hypertension; E78.5 Hyperlipidemia, unspecified; N40.0 Benign prostatic hyperplasia without lower urinary tract symptoms; Z79.01 Long term (current) use of anticoagulants; Z79.84 Long term (current) use of oral hypoglycemic drugs; Z86.73 Personal history of transient ischemic attack (TIA), and cerebral infarction without residual deficits; Z95.0 Presence of cardiac pacemaker; Z87.891 Personal history of nicotine dependence
CPT/HCPCS: 73502; 76000; 82948; 85027; 86850; 86900; 86901; 94150; C1776; C9290; J0131; J0690; J1100; J1580; J2250; J2270; J2405; J2710; J3010; J3370; J7030; J7050; J7120

== ENCOUNTER → 2017-01-12 | Outpatient (CLI) | payer MEDICARE, OTHER ==
[~2017-01-12] MED LIST: APIX5TAB PO; ASPI325T PO; BUME0.5T PO; COMMODE 3-IN-11 MIS; DICL75TA PO; EPIP0.3I IM; FISHOIL XX; FLEC1TAB9 PO; LEVO50TA4 PO; LISI2.5T3 PO; METF500T PO; NORC5TAB PO; NORV2.5T11 PO; OMEGCAP PO; ROSU10 PO; TERA2CAP3 PO; WALKER WHEELS/F1 MIS; ZOCO40TA PO
[2017-01-12 10:05] LABS: AUTOMATED NEUTROPHIL # 2.3 TH/MM3 (1.8-7.7); BASOPHIL % 0.5 % (0.0-2.0); EOSINOPHIL # 0.3 TH/MM3 (0-0.4); EOSINOPHIL % 6.3 % (0.0-4.0); HEMATOCRIT 38.7 % (39.0-51.0); HEMO FLAGS DIFF FINAL; LYMPH % 31.5 % (9.0-44.0); LYMPHOCYTE # 1.4 TH/MM3 (1.0-4.8); MEAN CELL VOLUME 90.7 FL (80.0-100.0); MEAN CORPUSCULAR HEMOGLOBIN 30.3 PG (27.0-34.0); MEAN CORPUSCULAR HGB CONC 33.4 % (32.0-36.0); MONO % 10.7 % (0.0-8.0); PLATELET COUNT 157 TH/MM3 (150-450); RED BLOOD COUNT 4.27 MIL/MM3 (4.50-5.90); RED CELL DISTRIBUTION WIDTH 14.8 % (11.6-17.2); WHITE BLOOD COUNT 4.5 TH/MM3 (4.0-11.0)
[2017-01-12 10:16] LABS: BLOOD, URINE NEG (NEG); COMMENT (UR) CULT NOT INDICATED; CULTURE IF INDICATED CULT NOT INDICATED; GLUCOSE,URINE NEG (NEG); HYALINE CAST, URINE 1 /lpf (RARE); KETONE, URINE NEG (NEG); MUCUS URINE FEW /lpf (OCC); NITRITE,URINE NEG (NEG); PH, URINE 5.5 (5.0-8.5); URINE COLOR LIGHT-YELLOW (YELLW/STRAW)
[2017-01-12 10:27] LABS: APTT (PATIENT) 30.1 SEC (24.3-30.1); PROTHROMBIN TIME - PATIENT 11.1 SEC (9.8-11.6)
[2017-01-12 10:30] LABS: WESTERGREN SEDIMENTATION RATE 8 mm/hr (0-20)
[2017-01-12 10:37] LABS: ALKALINE PHOSPHATASE 54 U/L (45-117); ALT (GPT) 19 U/L (12-78); ANION GAP 6 MEQ/L (5-15); AST (GOT) 13 U/L (15-37); BICARBONATE 29.8 MEQ/L (21.0-32.0); BLOOD UREA NITROGEN 31 MG/DL (7-18); CHLORIDE 103 MEQ/L (98-107); GLOMERULAR FILTRATION RATE 50 ML/MIN (>89); GLUCOSE,FASTING 102 MG/DL (74-99); POTASSIUM 4.8 MEQ/L (3.5-5.1); SODIUM (NA) 139 MEQ/L (136-145); TOTAL BILIRUBIN ADULT 0.6 MG/DL (0.2-1.0)
--- NOTE | 2017-01-12 11:41 | RADRPT ---
EXAM DATE/TIME: 01/12/2017 11:25 [facility] COMPARISON: No previous studies available for comparison. INDICATIONS : Evaluate for pneumonia,pneumothorax and communicable diseases. Pre-op hip replacement. MEDICAL HISTORY : Hypertension. Diabetes mellitus type I. SURGICAL HISTORY : Pacemaker. ENCOUNTER: Initial ACUITY: 1 day PAIN SCORE: 0/10 LOCATION: chest FINDINGS: PA and lateral views of the chest demonstrate the lungs to be symmetrically aerated without evidence of mass, infiltrate or effusion. The cardiomediastinal contours are unremarkable. Pacer is evident on the left. Osseous structures are intact. CONCLUSION: No acute disease. Xiang Emmanuel MD FACR on January 12, 2017 at 11:39 Board Certified Radiologist. This report was verified electronically.
== END ==
LOC: CPRE 09:23
PROVIDERS: ATTEND Orthopaedic Surgery
DX: M79.609 Pain in unspecified limb (principal); M25.50 Pain in unspecified joint; M16.12 Unilateral primary osteoarthritis, left hip; Z96.60 Presence of unspecified orthopedic joint implant
CPT/HCPCS: 36415; 71020; 80053; 81001; 85025; 85610; 85652; 85730

== ENCOUNTER 2017-12-06 12:27 | Observation (INO) | payer MEDICARE, OTHER ==
[2017-12-06] VITALS (10 sets, daily range): BP systolic 109–142; BP diastolic 58–81; PULSE 60–126; RESP 16–30; TEMP 97.7–98.3; O2SAT 83–96
[~2017-12-06] VITALS: Ht 190.5 cm; Wt 90.0 kg
[~2017-12-06 12:27] MED LIST changes: -ASPI325T PO; -DICL75TA PO; -EPIP0.3I IM; -FISHOIL XX; -NORV2.5T11 PO; -OMEGCAP PO; -ZOCO40TA PO
--- NOTE | 2017-12-06 12:43 | PD ---
HPI Chief Complaint: Respiratory Distress Time Seen by Provider: 12:38 Travel History International Travel<30 days: No Contact w/Intl Traveler<30days: No History of Present Illness HPI 82 YO M with PMH of a fib, on Eliquis, s/p implanted pacemaker, recent right THR (in [place]) presents to the ED for evaluation of SOB, VALLEJO. Patient states he has had these symptoms since his surgery. He notes some increased swelling of his abdomen and bilateral lower extremities. He has been ambulatory on his new hip without difficulties. He denies fever, chills, chest pain, palpitations , abdominal pain, nausea, vomiting, calf pain. He has home health care by a family member who is a HIM CLERK. He states that he was told that he had low blood pressure and offered a blood transfusion before DC after his hip replacement, but refused. PFSH Past Medical History Arthritis: No Asthma: No Heart Rhythm Problems: No Cancer: No Cardiovascular Problems: Yes (A FIB ) High Cholesterol: Yes Chest Pain: No Congestive Heart Failure: No COPD: No Cerebrovascular Accident: No Diabetes: Yes Endocrine: Yes GERD: No Genitourinary: Yes Hepatitis: No Hiatal Hernia: No Hypertension: Yes Immune Disorder: No Kidney Stones: No Musculoskeletal: Yes (ARTHRITIS) Neurologic: Yes (STOKE 3 YEARS AGO) Psychiatric: No Reproductive: No Respiratory: No Migraines: No Renal Failure: No Seizures: No Sleep Apnea: No Thyroid Disease: No Ulcer: No Past Surgical History Abdominal Surgery: No AICD: No Body Medical Devices: PACEMAKER Cardiac Surgery: Yes (PACEMAKER PLACED) Ear Surgery: No Endocrine Surgery: No Eye Surgery: No Genitourinary Surgery: No Gynecologic Surgery: No Joint Replacement: Yes (R TOTAL HIP) Oral Surgery: No Pacemaker: Yes (MEDTRONIC) Thoracic Surgery: Yes (TONSILLECTOMY, ADENOID SX) Tonsillectomy: Yes Social History Alcohol Use: Yes (Daily) Tobacco Use: No Substance Use: No Allergies-Medications (Allergen,Severity, Reaction): Uncoded Allergies: NYQUIL (Adverse Reaction, Unknown, 01/12/17) Reported Meds & Prescriptions Reported Meds & Active Scripts Active Reported Zofran (Ondansetron HCl) 4 Mg Tab 4 Mg PO Q6HR PRN Pravachol (Pravastatin) 40 Mg Tab 40 Mg PO HS Potassium Chloride ER (Potassium Chloride) 10 Meq Tab 10 Meq PO DAILY Percocet (Oxycodone-Acetaminophen) 5-325 mg Tab 1-2 Tab PO Q4-6H PRN [place]-3 ([place]-3 Fatty Acids) 1,000 Mg Capsule 1,000 Mg PO DAILY Metoprolol Tartrate 50 Mg Tab 50 Mg PO BID Hold if SBP less than 110 Hydroxyzine HCl 25 Mg Tab 25 Mg PO HS PRN Lasix (Furosemide) 20 Mg Tab 20 Mg PO DAILY Senokot S (Sennosides-Docusate Sodium) 8.6-50 Mg Tab 2 Tab PO BID Aspirin Adult Low Strength (Aspirin) 81 Mg Tabdr 81 Mg PO DAILY Metformin (Metformin HCl) 500 Mg Tab 500 Mg PO BIDPC With meals Eliquis (Apixaban) 5 Mg Tab 5 Mg PO BID Terazosin (Terazosin HCl) 2 Mg Cap 2 Mg PO BID Levothyroxine (Levothyroxine Sodium) 50 Mcg Tab 50 Mcg PO DAILY Review of Systems Except as stated in HPI: all other systems reviewed are Neg Physical Exam Narrative GENERAL: Well-nourished, well-developed, tachypneic white male in no acute distress. SKIN: Focused skin assessment warm/dry. 8 cm surgical wound of the right hip, well healing without signs of infection. HEAD: Normocephalic. EYES: No scleral icterus. No injection or drainage. NECK: Supple, trachea midline. No JVD or lymphadenopathy. CARDIOVASCULAR: Regular rate and rhythm without murmurs, gallops, or rubs. RESPIRATORY: Breath sounds clear and equal bilaterally. No accessory muscle use. GASTROINTESTINAL: Abdomen soft, non-tender, nondistended. Active bowel sounds. MUSCULOSKELETAL: No cyanosis. Trace edema in the bilateral lower extremities. Homans sign negative bilaterally. BACK: Nontender without obvious deformity. No CVA tenderness. Data Data Last Documented VS Vital Signs Date Time Temp Pulse Resp B/P (MAP) Pulse Ox O2 Delivery O2 Flow Rate FiO2 12/06/17 15:15 60 28 96 Nasal Cannula 3.00 12/06/17 12:36 98.3 118/58 (78) Orders Orders Complete Blood Count With Diff (12/06/17 12:38) Comprehensive Metabolic Panel (12/06/17 12:38) B-Type Natriuretic Peptide (12/06/17 12:38) Act Partial Throm Time (Ptt) (12/06/17 12:38) Prothrombin Time / Inr (Pt) (12/06/17 12:38) Magnesium (Mg) (12/06/17 12:38) Ckmb (Isoenzyme) Profile (12/06/17 12:38) Troponin I (12/06/17 12:38) Urinalysis - C+S If Indicated (12/06/17 12:38) Iv Access Insert/Monitor (12/06/17 12:38) Electrocardiogram (12/06/17 12:38) Ecg Monitoring (12/06/17 12:38) Oximetry (12/06/17 12:38) Oxygen Administration (12/06/17 12:38) Chest, Single Ap (12/06/17 12:38) Sodium Chloride 0.9% Flush (Ns Flush) (12/06/17 12:45) Ct Pulmonary Angiogram (12/06/17 12:47) Type And Screen (12/06/17 13:46) CKMB (12/06/17 13:00) CKMB% (12/06/17 13:00) Iohexol 350 Inj (Omnipaque 350 Inj) (12/06/17 15:00) Red Blood Cells (Rbc) (12/06/17 15:32) Blood Product Administration (12/06/17 15:32) Sodium Chlor 0.9% 250 Ml Inj (Ns 250 Ml (12/06/17 15:45) Furosemide Inj (Lasix Inj) (12/06/17 15:45) Admit Order (Ed Use Only) (12/06/17 ) Labs Laboratory Tests Test 12/06/17 13:00 White Blood Count 10.9 TH/MM3 Red Blood Count 2.82 MIL/MM3 Hemoglobin 8.7 GM/DL Hematocrit 24.9 % Mean Corpuscular Volume 88.2 FL Mean Corpuscular Hemoglobin 31.0 PG Mean Corpuscular Hemoglobin Concent 35.2 % Red Cell Distribution Width 14.0 % Platelet Count 163 TH/MM3 Mean Platelet Volume 8.0 FL Neutrophils (%) (Auto) 86.4 % Lymphocytes (%) (Auto) 7.2 % Monocytes (%) (Auto) 6.2 % Eosinophils (%) (Auto) 0.1 % Basophils (%) (Auto) 0.1 % Neutrophils # (Auto) 9.4 TH/MM3 Lymphocytes # (Auto) 0.8 TH/MM3 Monocytes # (Auto) 0.7 TH/MM3 Eosinophils # (Auto) 0.0 TH/MM3 Basophils # (Auto) 0.0 TH/MM3 CBC Comment DIFF FINAL Differential Comment Prothrombin Time 11.0 SEC Prothromb Time International Ratio 1.1 RATIO Activated Partial Thromboplast Time 28.0 SEC Blood Urea Nitrogen 33 MG/DL Creatinine 1.65 MG/DL Random Glucose 206 MG/DL Total Protein 6.3 GM/DL Albumin 2.9 GM/DL Calcium Level 8.7 MG/DL Magnesium Level 2.2 MG/DL Alkaline Phosphatase 46 U/L Aspartate Amino Transf (AST/SGOT) 54 U/L Alanine Aminotransferase (ALT/SGPT) 12 U/L Total Bilirubin 1.0 MG/DL Sodium Level 132 MEQ/L Potassium Level 5.4 MEQ/L Chloride Level 100 MEQ/L Carbon Dioxide Level 22.5 MEQ/L Anion Gap 10 MEQ/L Estimat Glomerular Filtration Rate 40 ML/MIN Total Creatine Kinase 933 U/L Creatine Kinase MB 10.4 NG/ML Creatine Kinase MB % 1.1 % Troponin I 0.19 NG/ML B-Type Natriuretic Peptide 1514 PG/ML MDM Medical Decision Making Medical Screen Exam Complete: Yes Emergency Medical Condition: Yes Differential Diagnosis PNA versus PE versus ACS versus anemia versus metabolic derangement versus other Narrative Course 82 YO M with PMH of a fib, on Eliquis, s/p implanted pacemaker, recent right THR (in [place]) presents to the ED for evaluation of SOB, VALLEJO. Patient states he has had these symptoms since his surgery. He notes some increased swelling of his abdomen and bilateral lower extremities. He states that he was told that he had low blood pressure and offered a blood transfusion before DC after his hip replacement, but refused. He endorses one episode of iron deficiency anemia in the past. Respiratory rate 30, O2 sat 87 on room air on presentation. Physical exam reveals a nontoxic-appearing white male in no acute distress. He is tachypneic with some increased effort of breathing. Chest CTA B. Abdomen soft and nontender. Homans sign negative bilaterally. Positive edema in the lower extremity. Right hip postsurgical wound is approximately 8 cm, well-healing without signs of infection. EKG rate 60, paced rhythm. Incomplete RBBB. Acute ST changes. Reviewed by Dr. Viel CXR: Minimal bilateral basilar densities could be atelectasis or infiltrate per radiology read Troponin: 0.19 CBC: WBC 10.9, neutrophil predominant. Hemoglobin 8.7. Hematocrit 44.9 CMP: Potassium 5.4. BUN 33, creatinine 1.65. Glucose 206. COAGS: INR 1.1 BNP: 1514 CTA: Small bilateral pleural effusions, pericardial effusion and bilateral parenchymal multiple infiltrates worsened consolidation right lower lobe. No evidence of PE for technique by radiology review Patient was initially resistant to transfusion. However after stating with Dr. Ignacio he gave permission. 2 units ordered pending type and screen. Patient will be admitted to the medicine service. Please see their notes for disposition. Laura Kenyon Dec 06, 2017 12:43
[2017-12-06] MEDS ORDERED: SODIUM CHLORIDE 0.9% FLUSH 10 ML FLUSH IVF PRN (12:45)
--- NOTE | 2017-12-06 13:09 | RADRPT ---
EXAM DATE/TIME: 12/06/2017 13:01 [facility] COMPARISON: No previous studies available for comparison. INDICATIONS : Shortness of breath. MEDICAL HISTORY : Hypertension. Stroke. Diabetes mellitus type II. V-tach. SURGICAL HISTORY : Pacemaker. Cadiac ablation. ENCOUNTER: Initial ACUITY: 1 day PAIN SCORE: 0/10 LOCATION: Bilateral chest FINDINGS: A single view of the chest demonstrates minimal bibasilar densities greater right lower lobe. Left si ded pacemaker with 2 intact leads. Heart and the upper limits of normal in size. The cardiomediastina l contours are unremarkable. Osseous structures are intact. CONCLUSION: 1. Minimal bibasilar densities could be atelectasis or infiltrate. Jose Reynoso MD on December 06, 2017 at 13:07 Board Certified Radiologist. This report was verified electronically.
[2017-12-06 13:19] LABS: AUTOMATED NEUTROPHIL # 9.4 TH/MM3 (1.8-7.7); BASOPHIL % 0.1 % (0.0-2.0); EOSINOPHIL % 0.1 % (0.0-4.0); HEMATOCRIT 24.9 % (39.0-51.0); HEMOGLOBIN 8.7 GM/DL (13.0-17.0); LYMPH % 7.2 % (9.0-44.0); LYMPHOCYTE # 0.8 TH/MM3 (1.0-4.8); MEAN CELL VOLUME 88.2 FL (80.0-100.0); MEAN CORPUSCULAR HGB CONC 35.2 % (32.0-36.0); MONO % 6.2 % (0.0-8.0); MONOCYTE # 0.7 TH/MM3 (0-0.9); NEUT % 86.4 % (16.0-70.0); PLATELET COUNT 163 TH/MM3 (150-450); RED BLOOD COUNT 2.82 MIL/MM3 (4.50-5.90); WHITE BLOOD COUNT 10.9 TH/MM3 (4.0-11.0)
[2017-12-06 13:26] LABS: INTERNATIONAL NORMALIZED RATIO 1.1 RATIO
[2017-12-06] MEDS ORDERED: FURO1TAB62 PO (13:36)
[2017-12-06] MEDS ORDERED: METO50TA PO (13:36)
[2017-12-06] MEDS ORDERED: PERC5TAB12 PO (13:36)
[2017-12-06] MEDS ORDERED: PRAV40TA PO (13:36)
[2017-12-06] MEDS ORDERED: OMEG10004 PO (13:36)
[2017-12-06] MEDS ORDERED: POTA10TA2 PO (13:36)
[2017-12-06] MEDS ORDERED: HYDR-3133 PO (13:36)
[2017-12-06] MEDS ORDERED: ASPI81TA16 PO (13:36)
[2017-12-06] MEDS ORDERED: SENN1TAB17 PO (13:36)
[2017-12-06] MEDS ORDERED: ZOFR4TAB PO (13:36)
[2017-12-06 13:43] LABS: ALT (GPT) 12 U/L (12-78)
[2017-12-06 13:58] LABS: ALBUMIN 2.9 GM/DL (3.4-5.0); ALKALINE PHOSPHATASE 46 U/L (45-117); AST (GOT) 54 U/L (15-37); BICARBONATE 22.5 MEQ/L (21.0-32.0); BLOOD UREA NITROGEN 33 MG/DL (7-18); CALCIUM 8.7 MG/DL (8.5-10.1); CHLORIDE 100 MEQ/L (98-107); CREATININE 1.65 MG/DL (0.60-1.30); GLOMERULAR FILTRATION RATE 40 ML/MIN (>89); GLUCOSE,RANDOM 206 MG/DL (74-106); MAGNESIUM 2.2 MG/DL (1.5-2.5); SODIUM (NA) 132 MEQ/L (136-145); TOTAL PROTEIN 6.3 GM/DL (6.4-8.2); TROPONIN I 0.19 NG/ML (0.02-0.05)
[2017-12-06] MEDS ORDERED: IOHEXOL 350 MG/ML 10 ML VIAL (for RAD DIAG) IVCONTRAST ONE (15:00)
--- NOTE | 2017-12-06 15:15 | RADRPT ---
EXAM DATE/TIME: 12/06/2017 14:58 [facility] COMPARISON: CHEST SINGLE AP, December 06, 2017, 13:01. INDICATIONS : Shortness of breath today. IV CONTRAST: 74 cc Omnipaque 350 (iohexol) IV RADIATION DOSE: 10.87 CTDIvol (mGy) MEDICAL HISTORY : Hypertension. diabetes SURGICAL HISTORY : kidney transplant ENCOUNTER: Initial ACUITY: 1 day PAIN SCALE: 0/10 LOCATION: Bilateral chest TECHNIQUE: Volumetric scanning of the chest was performed using a pulmonary embolism protocol MIP images were re constructed. Using automated exposure control and adjustment of the mA and/or kV according to patien t size, radiation dose was kept as low as reasonably achievable to obtain optimal diagnostic quality images. DICOM format image data is available electronically for review and comparison. Follow-up recommendations for detected pulmonary nodules are based at a minimum on nodule size and pa tient risk factors according to Fleischner Society Guidelines. FINDINGS: There is no evidence for PE for technique. Small bilateral pleural effusions are present and the re is dense consolidation right lower lobe with patchy infiltrates in the right upper lobe posteriorl y and left lower lobe. Coronary artery calcifications are seen typically seen with CAD and need to be evaluated clinically. Small pericardial effusion is seen. CONCLUSION: Small bilateral pleural effusions, pericardial effusion and bilateral parenchymal infiltrates worse c onsolidation right lower lobe. There is no evidence for PE for technique. Tarun Atkins MD on December 06, 2017 at 15:05 Board Certified Radiologist. This report was verified electronically.
[2017-12-06] MEDS ORDERED: SODIUM CHLOR 0.9% 250 ML INJ 250 ML IV ONE (15:45)
[2017-12-06] MEDS ORDERED: FUROSEMIDE 40 MG/4 ML VIAL IV PUSH ONE (15:45)
--- NOTE | 2017-12-06 16:01 | PD ---
Data Data Last Documented VS Vital Signs Date Time Temp Pulse Resp B/P (MAP) Pulse Ox O2 Delivery O2 Flow Rate FiO2 12/06/17 15:15 60 28 96 Nasal Cannula 3.00 12/06/17 12:36 98.3 118/58 (78) Orders Orders Complete Blood Count With Diff (12/06/17 12:38) Comprehensive Metabolic Panel (12/06/17 12:38) B-Type Natriuretic Peptide (12/06/17 12:38) Act Partial Throm Time (Ptt) (12/06/17 12:38) Prothrombin Time / Inr (Pt) (12/06/17 12:38) Magnesium (Mg) (12/06/17 12:38) Ckmb (Isoenzyme) Profile (12/06/17 12:38) Troponin I (12/06/17 12:38) Urinalysis - C+S If Indicated (12/06/17 12:38) Iv Access Insert/Monitor (12/06/17 12:38) Electrocardiogram (12/06/17 12:38) Ecg Monitoring (12/06/17 12:38) Oximetry (12/06/17 12:38) Oxygen Administration (12/06/17 12:38) Chest, Single Ap (12/06/17 12:38) Sodium Chloride 0.9% Flush (Ns Flush) (12/06/17 12:45) Ct Pulmonary Angiogram (12/06/17 12:47) Type And Screen (12/06/17 13:46) CKMB (12/06/17 13:00) CKMB% (12/06/17 13:00) Iohexol 350 Inj (Omnipaque 350 Inj) (12/06/17 15:00) Red Blood Cells (Rbc) (12/06/17 15:32) Blood Product Administration (12/06/17 15:32) Sodium Chlor 0.9% 250 Ml Inj (Ns 250 Ml (12/06/17 15:45) Furosemide Inj (Lasix Inj) (12/06/17 15:45) Admit Order (Ed Use Only) (12/06/17 ) Labs Laboratory Tests Test 12/06/17 13:00 White Blood Count 10.9 TH/MM3 Red Blood Count 2.82 MIL/MM3 Hemoglobin 8.7 GM/DL Hematocrit 24.9 % Mean Corpuscular Volume 88.2 FL Mean Corpuscular Hemoglobin 31.0 PG Mean Corpuscular Hemoglobin Concent 35.2 % Red Cell Distribution Width 14.0 % Platelet Count 163 TH/MM3 Mean Platelet Volume 8.0 FL Neutrophils (%) (Auto) 86.4 % Lymphocytes (%) (Auto) 7.2 % Monocytes (%) (Auto) 6.2 % Eosinophils (%) (Auto) 0.1 % Basophils (%) (Auto) 0.1 % Neutrophils # (Auto) 9.4 TH/MM3 Lymphocytes # (Auto) 0.8 TH/MM3 Monocytes # (Auto) 0.7 TH/MM3 Eosinophils # (Auto) 0.0 TH/MM3 Basophils # (Auto) 0.0 TH/MM3 CBC Comment DIFF FINAL Differential Comment Prothrombin Time 11.0 SEC Prothromb Time International Ratio 1.1 RATIO Activated Partial Thromboplast Time 28.0 SEC Blood Urea Nitrogen 33 MG/DL Creatinine 1.65 MG/DL Random Glucose 206 MG/DL Total Protein 6.3 GM/DL Albumin 2.9 GM/DL Calcium Level 8.7 MG/DL Magnesium Level 2.2 MG/DL Alkaline Phosphatase 46 U/L Aspartate Amino Transf (AST/SGOT) 54 U/L Alanine Aminotransferase (ALT/SGPT) 12 U/L Total Bilirubin 1.0 MG/DL Sodium Level 132 MEQ/L Potassium Level 5.4 MEQ/L Chloride Level 100 MEQ/L Carbon Dioxide Level 22.5 MEQ/L Anion Gap 10 MEQ/L Estimat Glomerular Filtration Rate 40 ML/MIN Total Creatine Kinase 933 U/L Creatine Kinase MB 10.4 NG/ML Creatine Kinase MB % 1.1 % Troponin I 0.19 NG/ML B-Type Natriuretic Peptide 1514 PG/ML MDM Supervised Visit with MIRIAN: Yes Narrative Course The history, exam, and medical decision-making in the associated mid-level provider note were completed with my assistance. I reviewed and agree with the findings presented. I attest that I had a [id number] encounter with the patient on the same day, and personally performed and documented my assessment and findings in the medical record. *My assessment and Findings: 82-year-old man, presents to the emergency department with shortness of breath. Recent total hip replacement over the past couple days. Was anemic on discharge but declined blood transfusion. Is also on the right leg. Some tachycardia. CT is negative for PE. He does have some pleural effusions, no evidence of volume overload that may be contributing to his worsening dyspnea on exertion shortness of breath. Anemia is almost certainly contributed as well. Troponins elevated. I recommended diuresis and transfusion and observation for serial cardiac enzymes. Patient agreeable. Joseluis Ignacio MD Dec 06, 2017 16:01
--- NOTE | 2017-12-06 16:06 | HHI.HP ---
[facility] Service Family Medicine Primary Care Physician Kai Foy, DO Admission Diagnosis Volume overload, anemia, shortness of breath Diagnoses: International Travel<30 Days: No Contact w/Intl Traveler<30days: No Known Affected Area: No History of Present Illness 82 yo male presenting to the ED progressive SOB, fluid retention. Just had R hip replaced at [facility] on 12/03 and was discharged on 12/05. He developed some SOB during that hospitalization and since he was discharged he has developed worsening SOB, worse on exertion. Decreased appetite, decreased fluid intake, decreased urinary output, fatigued. Feels completely exhausted even with getting out of bed. Abdomen is more distended, legs are more swollen since the surgery. Prior to the surgery, he was very active and could use a rowing machine at the gym for 45 minutes three times per week with no SOB. He did experience some hypotension during the hospitalization. He was offered a blood transfusion at that time but he refused. Overnight his states that he was gasping for air during his sleep, usually uses 2 pillows with no change recently. Review of Systems Constitutional: COMPLAINS OF: Change in appetite, DENIES: Fever, Chills Endocrine: DENIES: Polyuria Eyes: DENIES: Blurred vision Ears, nose, mouth, throat: DENIES: Throat pain, Running Nose Respiratory: COMPLAINS OF: Wheezing (occasional), Shortness of breath, DENIES: Cough, Hemoptysis Cardiovascular: COMPLAINS OF: Dyspnea on Exertion, Lower Extremity Edema, Orthopnea, DENIES: Chest pain, Palpitations Gastrointestinal: COMPLAINS OF: Constipation (no BM since 11/30), DENIES: Abdominal pain, Black stools, Bloody stools, Diarrhea, Nausea, Vomiting Genitourinary: COMPLAINS OF: Dysuria (has been after they used catheter in recent hospitalization ), DENIES: Hematuria Musculoskeletal: DENIES: Joint pain Integumentary: DENIES: Rash Hematologic/lymphatic: DENIES: Lymphadenopathy Neurologic: DENIES: Headache, Localized weakness Psychiatric: DENIES: Confusion Past Family Social History Past Medical History Osteoarthritis type 2 diabetes - not requiring insulin aortic stenosis hypertension hyperlipidemia CVA - 2012 no residual effects Atrial fibrillation with pacemaker V tach in April of 2017 - had ablation Hypothyroidism Past Surgical History Tonsillectomy Pacemaker placement in 2009 L hip arthroplasty in 12/2016 Total right hip replacement on 12/03/17 Allergies: Uncoded Allergies: NYQUIL (Adverse Reaction, Unknown, 01/12/17) Family History Heart from [place] Afib in sister Mother of pancreatic cancer Social History Patient was at home with his - lives in [place] over the summer, [place] during the winter Had 3 drinks a day prior to this October, currently not drinking Smoked 1 pack per day for 20 years but stopped 34 years ago No illicit drug use Physical Exam Vital Signs Vital Signs Date Time Temp Pulse Resp B/P (MAP) Pulse Ox O2 Delivery O2 Flow Rate FiO2 12/06/17 15:15 60 28 96 Nasal Cannula 3.00 12/06/17 14:30 60 20 94 Nasal Cannula 3.00 12/06/17 13:30 60 20 94 Nasal Cannula 3.00 12/06/17 12:45 93 Nasal Cannula 3.00 12/06/17 12:36 99 Room Air 12/06/17 12:36 98.3 66 30 118/58 (78) 83 Physical Exam GENERAL: This is a well-nourished, well-developed patient sitting upright in no acute distress. Nasal cannula in place. Speaking in complete sentences. SKIN: No rashes, ecchymoses or lesions. Cool and dry. HEAD: Atraumatic. Normocephalic. No temporal or scalp tenderness. EYES: Pupils equal round and reactive. Extraocular motions intact. No scleral icterus. No injection or drainage. ENT: Nose without bleeding, purulent drainage or septal hematoma. Throat without erythema, tonsillar hypertrophy or exudate. Uvula midline. Airway patent. NECK: Trachea midline. No JVD or lymphadenopathy. Supple, nontender, no meningeal signs. CARDIOVASCULAR: Regular rate and rhythm. Systolic murmur appreciated along the right sternal border. RESPIRATORY: Breath sounds equal bilaterally. Crackles appreciated in the bibasilar lung bases. No wheezes appreciated GASTROINTESTINAL: Protuberant abdomen. Soft, nontender. No hepatomegaly is appreciated. MUSCULOSKELETAL: 1+ pitting edema to the level of the knee bilaterally. No erythema or asymmetry appreciated. No calf tenderness. Negative Homans sign bilaterally. NEUROLOGICAL: Awake and alert. Cranial nerves II through XII intact. Motor and sensory grossly within normal limits. Five out of 5 muscle strength in all muscle groups. Normal speech. Laboratory Laboratory Tests Test 12/06/17 13:00 White Blood Count 10.9 Red Blood Count 2.82 Hemoglobin 8.7 Hematocrit 24.9 Mean Corpuscular Volume 88.2 Mean Corpuscular Hemoglobin 31.0 Mean Corpuscular Hemoglobin Concent 35.2 Red Cell Distribution Width 14.0 Platelet Count 163 Mean Platelet Volume 8.0 Neutrophils (%) (Auto) 86.4 Lymphocytes (%) (Auto) 7.2 Monocytes (%) (Auto) 6.2 Eosinophils (%) (Auto) 0.1 Basophils (%) (Auto) 0.1 Neutrophils # (Auto) 9.4 Lymphocytes # (Auto) 0.8 Monocytes # (Auto) 0.7 Eosinophils # (Auto) 0.0 Basophils # (Auto) 0.0 CBC Comment DIFF FINAL Differential Comment Prothrombin Time 11.0 Prothromb Time International Ratio 1.1 Activated Partial Thromboplast Time 28.0 Blood Urea Nitrogen 33 Creatinine 1.65 Random Glucose 206 Total Protein 6.3 Albumin 2.9 Calcium Level 8.7 Magnesium Level 2.2 Alkaline Phosphatase 46 Aspartate Amino Transf (AST/SGOT) 54 Alanine Aminotransferase (ALT/SGPT) 12 Total Bilirubin 1.0 Sodium Level 132 Potassium Level 5.4 Chloride Level 100 Carbon Dioxide Level 22.5 Anion Gap 10 Estimat Glomerular Filtration Rate 40 Total Creatine Kinase 933 Creatine Kinase MB 10.4 Creatine Kinase MB % 1.1 Troponin I 0.19 B-Type Natriuretic Peptide 1514 Result Diagram: 12/06/17 1300 12/06/17 1300 Imaging Last [address] Angiography 12/06/17 1247 Signed Impressions: Service Date/Time: Wednesday, December 06, 2017 14:58 - CONCLUSION: Small bilateral pleural effusions, pericardial effusion and bilateral parenchymal infiltrates worse consolidation right lower lobe. There is no evidence for PE for technique. K. Isauro Atkins MD Chest X-Ray 12/06/17 1238 Signed Impressions: Service Date/Time: Wednesday, December 06, 2017 13:01 - CONCLUSION: 1. Minimal bibasilar densities could be atelectasis or infiltrate. MD Alexandra Goodmani VTE Risk Assessment Sonya VTE Risk Assessment: Mod/High Risk (score >= 2) Assessment and Plan Assessment and Plan 82-year-old male with significant past medical history of hypertension, hyperlipidemia, history of CVA with no residual effects, type 2 diabetes, A. fib with pacemaker and recent total right hip replacement on 12/03/17 presenting to the ED with progressive shortness of breath, fluid retention. CTA on admission negative for PE, significant for small bilateral pleural effusions, pericardial effusion and bilateral parenchymal infiltrates. Cardiac enzymes elevated on admission, BNP elevated at 1514. Code Status Full code Discussed Condition With Dr. Mckeon Problem List: (1) Respiratory distress ICD Codes: R06.03 - Acute respiratory distress Plan: Patient presenting with worsening shortness of breath, fluid retention after recent right total hip replacement on 12/03 Patient initially satting 83% on room air, maintaining saturations on 3 L nasal cannula Tachypneic in the 20s Afebrile Chest x-ray on admission showing minimal bibasilar densities which could be atelectasis or infiltrate CT on admission negative for PE, showing small bilateral pleural effusions, pericardial effusion and bilateral parenchymal infiltrates Patient appearing fluid overloaded on admission, crackles in lung bases, lower show any edema Cardiac enzymes elevated as described below Differential includes ACS, pneumonia, atelectasis, CHF, PE ACS workup as described below Patient afebrile, no leukocytosis. Lower suspicion for pneumonia Echo pending Ordering 40 mg IV Lasix after transfusion, will continue with 40 mg IV twice a day Duonebs q6hr scheduled UA pending UDS pending Incentive Spirometry Consider BiPAP if continued worsening SOB (2) Cardiac enzymes elevated ICD Codes: R74.8 - Abnormal levels of other serum enzymes Plan: Patient found to have elevated cardiac enzymes on admission as follows Troponin 0.19, will trend every 6 hours 2 Total creatinine kinase 933, will trend every 6 hours x2 CK-MB 10.4, repeat in 6 hours BNP elevated at 1514, see workup as above EKG on admission significant for low voltage, no ST changes. Will trend every 6 hours 2 On continuous telemetry Consider cardiology consult pending these results (if troponin > 0.5) (3) Status post total hip replacement, right ICD Codes: Z96.641 - Presence of right artificial hip joint Plan: Patient is postop day 3 from right total hip replacement Patient is high risk for thromboembolism U/S bilateral legs pending Continuing Eliquis and ASA Pain scale: Acetaminophen pain scale 1-2 Percocet 5 mg pain scale 3-5 Percocet 10 mg pain scale 6-10 (4) HTN (hypertension) ICD Codes: I10 - Essential (primary) hypertension Plan: History of hypertension Blood pressures within normal limits on admission Continuing home metoprolol tartrate 50 mg twice a day (5) CAD (coronary artery disease) ICD Codes: I25.10 - Atherosclerotic heart disease of [place] coronary artery without angina pectoris Plan: Known history of CAD Continue home pravastatin 40 mg at night Continue home aspirin 81 mg daily See cardiac workup as above (6) Afib ICD Codes: I48.91 - Unspecified atrial fibrillation Plan: Patient with a history of A. fib with pacemaker EKG on admission showing sinus rhythm Continue home Eliquis 5 mg by mouth twice a day (7) LAUREL (acute kidney injury) ICD Codes: N17.9 - Acute kidney failure, unspecified Plan: Creatinine elevated at 1.65 on admission Creatinine in 12/2016 was 1.3 Suspecting acute on chronic kidney injury Trend morning labs (8) Anemia ICD Codes: D64.9 - Anemia, unspecified Plan: Patient found to be anemic on admission with a H&H of 8.7 over 24.9 ED physician ordered blood transfusion Patient is postop day 3 from total right hip replacement Patient not reporting hematemesis, dark stools. Low suspicion for GI bleed Will follow-up morning CBC Transfuse if hemoglobin less than 7 (9) Hypothyroid ICD Codes: E03.9 - Hypothyroidism, unspecified Plan: History of hypertension Continue home levothyroxine (10) Diabetes mellitus ICD Codes: E11.9 - Type 2 diabetes mellitus without complications Plan: Glucose 206 on admission Does not require insulin at baseline On metformin at home Holding metformin, low-dose sliding scale Trend Accu-Cheks, a.m. labs (11) BPH (benign prostatic hyperplasia) ICD Codes: N40.0 - Benign prostatic hyperplasia without lower urinary tract symptoms Plan: History of BPH Continue home Terazosin (12) FEN Plan: No IV fluids at this time Will replete electrolytes as needed Heart healthy diet Nirmal Pham MD R1 Dec 06, 2017 16:05
[2017-12-06] MEDS ORDERED: ONDANSETRON HCL 4 MG/2 ML VIAL IVP PRN (17:00)
[2017-12-06] MEDS ORDERED: LORazepam 1 MG TAB PO PRN (17:00)
[2017-12-06] MEDS ORDERED: FLUMAZENIL 0.5 MG/5 ML VIAL IV PUSH PRN (17:00)
[2017-12-06] MEDS ORDERED: SODIUM CHLORIDE 0.9% FLUSH 10 ML FLUSH IV FLUSH PRN (17:00)
[2017-12-06] MEDS ORDERED: ZOLPIDEM TARTRATE 5 MG TAB PO PRN (17:00)
[2017-12-06] MEDS ORDERED: ACETAMINOPHEN 325 MG TAB PO PRN ×2 (17:00→17:45)
[2017-12-06] MEDS ORDERED: LACTULOSE SYRUP 20 GM/30 ML CUP PO PRN (17:00)
[2017-12-06] MEDS ORDERED: LORazepam 2 MG/ML VIAL IV PUSH PRN ×4 (17:00)
[2017-12-06] MEDS ORDERED: MAGNESIUM HYDROXIDE SUSP 30 ML CUP PO PRN (17:00)
[2017-12-06] MEDS ORDERED: SENNOSIDES 8.6 MG TAB PO PRN (17:00)
[2017-12-06] MEDS ORDERED: NALOXONE HCL 0.4 MG/ML AMP IV PUSH PRN ×2 (17:00→17:30)
[2017-12-06] MEDS ORDERED: LORazepam 2 MG TAB PO PRN (17:00)
[2017-12-06] MEDS ORDERED: BISACODYL 10 MG SUPP RECTAL PRN (17:00)
[2017-12-06] MEDS ORDERED: IBUPROFEN 400 MG TAB PO PRN (17:30)
[2017-12-06] MEDS ORDERED: GLUCAGON 1 MG/ML VIAL OTHER PRN (17:30)
[2017-12-06] MEDS ORDERED: oxyCODONE/ACETAMINOPHEN 10 MG/325 MG TAB PO PRN (17:30)
[2017-12-06] MEDS ORDERED: DEXTROSE 50% IN WATER 50 ML VIAL(D50) IV PUSH PRN (17:30)
[2017-12-06] MEDS ORDERED: oxyCODONE/ACETAMINOPHEN 5 MG/325 MG TAB PO PRN (17:30)
[2017-12-06 17:51] LABS: BILIRUBIN, URINE NEG (NEG); BLOOD, URINE SMALL (NEG); GLUCOSE,URINE NEG (NEG); HYALINE CAST, URINE 6 /lpf (RARE); KETONE, URINE TRACE mg/dL (NEG); MUCUS URINE FEW /lpf (OCC); NITRITE,URINE NEG (NEG); PH, URINE 5.5 (5.0-8.5); URINE COLOR YELLOW (YELLW/STRAW); URINE LEUKOCYTE ESTERASE NEG (NEG)
[2017-12-06] MEDS: RESP: ALBUTEROL 2.5 MG/IPRATROPIUM 0.5 MG NEB (SCH) INH ×2 (19:13→23:23)
--- NOTE | 2017-12-06 20:38 | RADRPT ---
EXAM DATE/TIME: 12/06/2017 19:17 [facility] COMPARISON: No previous studies available for comparison. INDICATIONS : Bilateral leg swelling. MEDICAL HISTORY : Hypertension. Hypercholesterolemia. Hypothyroidism. Osteoarthritis. Diabetes. Aortic stenosis. Antico agulant therapy. Cerebrovascular accident. Irregular heartbeat. Anemia. SURGICAL HISTORY : Tonsillectomy.Pacemaker. Cardiac ablation. Bilateral hip replacements. ENCOUNTER: Initial ACUITY: 1 day PAIN SCORE: 0/10 LOCATION: Bilateral legs. TECHNIQUE: Venous ultrasound of the left and right leg was performed from the inguinal ligament to the proximal calf. Real-time, color Doppler and spectral tracing, compression and augmentation techniques were us ed. FINDINGS: RIGHT LEG: There is normal compressibility of the deep venous system from the inguinal region to the proximal ca lf. No echogenic clot is seen in the lumen of the common femoral, femoral, popliteal, and posterior tibial veins. There is a normal response of the venous system to proximal and distal augmentation an d respiration. LEFT LEG: There is normal compressibility of the deep venous system from the inguinal region to the proximal ca lf. No echogenic clot is seen in the lumen of the common femoral, femoral, popliteal, and posterior tibial veins. There is a normal response of the venous system to proximal and distal augmentation an d respiration. CONCLUSION: Normal examination. Tarun Atkins MD on December 06, 2017 at 20:36 Board Certified Radiologist. This report was verified electronically.
[2017-12-06] MEDS: FUROSEMIDE 40 MG/4 ML VIAL IVP SCH (20:47)
[2017-12-06] MEDS ORDERED: METOPROLOL TARTRATE 50 MG TAB PO SCH (21:00)
[2017-12-06 21:19] LABS: TROPONIN I 0.16 NG/ML (0.02-0.05)
[2017-12-06] MEDS: INSULIN ASPART SUPPLEMENTAL SCALE SQ SCH (23:20)
[2017-12-07] VITALS (9 sets, daily range): BP systolic 55–115; BP diastolic 52–70; PULSE 52–82; RESP 16–21; TEMP 97.8–98.8; O2SAT 95–99
[2017-12-07] MEDS: APIXABAN 5 MG TABLET PO SCH ×3 (00:29→21:11)
[2017-12-07] MEDS: PRAVASTATIN SOD 40 MG TAB PO SCH ×2 (00:29→21:11)
[2017-12-07] MEDS: DOCUSATE SODIUM 50 MG/SENNA 8.6 MG TAB PO SCH ×3 (00:29→21:11)
[2017-12-07] MEDS: TERAZOSIN HCL 1 MG CAP PO SCH ×3 (00:29→21:11)
[2017-12-07] MEDS: SODIUM CHLORIDE 0.9% FLUSH 10 ML FLUSH IV FLUSH SCH ×3 (00:30→21:10)
[2017-12-07] MEDS: RESP: ALBUTEROL 2.5 MG/IPRATROPIUM 0.5 MG NEB (SCH) INH ×6 (03:06→22:55)
[2017-12-07 04:37] LABS: AUTOMATED NEUTROPHIL # 5.8 TH/MM3 (1.8-7.7); BASOPHIL % 0.3 % (0.0-2.0); EOSINOPHIL % 0.6 % (0.0-4.0); HEMATOCRIT 24.8 % (39.0-51.0); HEMOGLOBIN 8.7 GM/DL (13.0-17.0); LYMPH % 16.3 % (9.0-44.0); LYMPHOCYTE # 1.3 TH/MM3 (1.0-4.8); MEAN CELL VOLUME 86.4 FL (80.0-100.0); MEAN CORPUSCULAR HEMOGLOBIN 30.4 PG (27.0-34.0); MEAN CORPUSCULAR HGB CONC 35.2 % (32.0-36.0); MEAN PLATELET VOLUME 7.9 FL (7.0-11.0); MONO % 9.7 % (0.0-8.0); MONOCYTE # 0.8 TH/MM3 (0-0.9); NEUT % 73.1 % (16.0-70.0); PLATELET COUNT 143 TH/MM3 (150-450); RED BLOOD COUNT 2.87 MIL/MM3 (4.50-5.90); RED CELL DISTRIBUTION WIDTH 13.6 % (11.6-17.2); WHITE BLOOD COUNT 7.9 TH/MM3 (4.0-11.0)
[2017-12-07 05:02] LABS: ALBUMIN 2.7 GM/DL (3.4-5.0); ALKALINE PHOSPHATASE 40 U/L (45-117); ALT (GPT) 13 U/L (12-78); AST (GOT) 43 U/L (15-37); BICARBONATE 25.7 MEQ/L (21.0-32.0); BLOOD UREA NITROGEN 31 MG/DL (7-18); CALCIUM 7.8 MG/DL (8.5-10.1); CHLORIDE 103 MEQ/L (98-107); GLOMERULAR FILTRATION RATE 58 ML/MIN (>89); GLUCOSE,RANDOM 115 MG/DL (74-106); SODIUM (NA) 138 MEQ/L (136-145); TOTAL BILIRUBIN ADULT 0.9 MG/DL (0.2-1.0); TOTAL PROTEIN 5.9 GM/DL (6.4-8.2); TROPONIN I 0.17 NG/ML (0.02-0.05)
[2017-12-07 06:14] LABS: OVALOCYTES 1+ (NORMAL)
[2017-12-07 06:15] LABS: HELMET CELLS OCC (NORMAL)
[2017-12-07] MEDS: INSULIN ASPART SUPPLEMENTAL SCALE SQ SCH ×4 (08:00→21:12)
[2017-12-07] MEDS ORDERED: POTASSIUM CHLORIDE 10 MEQ CONTROLLED RELEASE TAB PO SCH (09:00)
--- NOTE | 2017-12-07 09:20 | RADRPT ---
EXAM DATE/TIME: 12/07/2017 09:04 [facility] COMPARISON: CHEST PA & LAT, January 12, 2017, 11:25. INDICATIONS : Shortness of breath. MEDICAL HISTORY : Hypertension. Stroke. Diabetes mellitus type II. V-tach. SURGICAL HISTORY : Pacemaker. Cadiac ablation. ENCOUNTER: Subsequent ACUITY: 2 days PAIN SCORE: 0/10 LOCATION: Bilateral chest FINDINGS: Pacer in good position. Mild interstitial edema present. Minimal cardiomegaly. Minimal bibasilar p arenchymal changes with minimal bilateral pleural effusions. CONCLUSION: Moderate congestive failure.. Xiang Emmanuel MD FACR on December 07, 2017 at 9:17 Board Certified Radiologist. This report was verified electronically.
--- NOTE | 2017-12-07 09:54 | HHI.FPPN ---
Subjective Remarks Nadira Chavez is an 82yo gentleman with h/o known aortic stenosis admitted for fluid overload/pulmonary edema after presenting with worsening SOB and fluid retention. Of note, he underwent an elective Right hip replacement at an outside hospital on 12/03/17 and was discharge 12/05/17 to home. Over the last two days, he has had decreased appetite, decreased PO intake, decreased urinary output, increased fatigue, and lower extremity edema. No orthopnea. For further details, please see resident H&P. This morning, he reports he is feeling a bit better. He reports good urine output. He denies chest pain. He is requiring oxygen supplementation by nasal cannula to maintain his O2 sats. ROS: + fatigue, + edema, + SOB. No chest pain, no palpitations. All other systems reviewed are negative. PMH/PSxH/SocHx/FamHx: Per resident H&P. Significant for: aortic stenosis, HTN, hyperlipidemia. Stroke in 2012 without residual deficits. A fib with pacemaker. S/P ablation 04/2017 for V tach. hypothyroidism. Type 2 DM. Pacemaker placement, Bilateral hip replacements CAD and A fib in family. Lives at home with ; lives in [place] during winter and [place] in summer. Previously 3 drinks per day, but quit October 2017. 20 pack year tobacco history, but quit >30 years ago. Retired junior automation engineer. Objective Vitals Vital Signs Date Time Temp Pulse Resp B/P (MAP) Pulse Ox O2 Delivery O2 Flow Rate FiO2 12/07/17 08:20 96 Nasal Cannula 3.00 12/07/17 07:55 97.8 65 18 115/69 (84) 96 12/07/17 03:35 98.0 61 17 99/57 (71) 97 12/07/17 00:36 98.8 78 16 98/55 (69) 95 12/06/17 21:41 98.2 111 17 109/81 (90) 90 12/06/17 20:50 126 16 132/64 (86) 93 Nasal Cannula 2.00 12/06/17 20:43 98.1 122 16 132/64 93 12/06/17 19:15 95 Nasal Cannula 3.00 12/06/17 17:05 97.8 60 24 142/67 96 12/06/17 16:49 97.7 60 25 129/61 95 12/06/17 15:15 60 28 96 Nasal Cannula 3.00 12/06/17 14:30 60 20 94 Nasal Cannula 3.00 12/06/17 13:30 60 20 94 Nasal Cannula 3.00 12/06/17 12:45 93 Nasal Cannula 3.00 12/06/17 12:36 99 Room Air 12/06/17 12:36 98.3 66 30 118/58 (78) 83 I/O 12/06/17 12/06/17 12/06/17 12/07/17 12/07/17 12/07/17 07:00 15:00 23:00 07:00 15:00 23:00 Intake Total 450 ml Output Total 300 ml Balance 150 ml Intake Packed Cells 400 ml Blood Product IV Normal Saline Flush 50 ml Output Urine Total 300 ml # Voids 1 Result Diagram: 12/07/17 0246 12/07/17 0246 Objective Remarks GENERAL: in NAD, no resp distress, nontoxic. Talks in full sentences. 3lpm by nasal cannula. HEENT: NCAT, EOMI, no scleral icterus, no conjunctival injection. MMM. No nasal drainage. Nasal cannula in place. NECK: Supple, No meningeal signs. CV: RRR, S1 S2. 3/6 systolic murmur, harsh, heard best at RUSB. CHEST/PULM: Crackles at bases bilaterally. No retractions, no accessory muscle use. ABD/GI: +BS, soft, nondistended EXT: trace pitting edema to mid walker. No calf tenderness. 2+ DP pulses. NEURO: Awake, alert. Normal muscle tone. Grossly nonfocal. SKIN: No rash, no jaundice. PSYCH: Mood and affect are appropriate. Speech fluent and sensical. A/P Assessment and Plan 82yo gentleman admitted for pulmonary edema after Attending Attestation Patient seen, examined, and discussed with resident team. The patient has been seen and examined. The chart and all resident notes have been reviewed. I agree that inpatient care is appropriate and that a two midnight stay is expected for the reasons documented in the resident history and physical. I have discussed this with the resident and certify the resident s order for inpatient admission. Problem List: (1) Respiratory distress ICD Codes: R06.03 - Acute respiratory distress Status: Acute Plan: Patient presenting with worsening shortness of breath, fluid retention after recent right total hip replacement on 12/03. CXR demonstrates pulmonary edema. At presentation, pt with O2 sat of 83% on room air, and has required 3lpm by nasal cannula. CTA on admission negative for PE, showing small bilateral pleural effusions, pericardial effusion and bilateral parenchymal infiltrates vs edema. Differential includes ACS, pneumonia, atelectasis, CHF, PE, vs worsening aortic stenosis vs other. Troponin reassuring x 3, although mildly elevated. Echocardiogram: pending BNP markedly elevated, >1500 Will hold off on antibiotics for empiric treatment of pneumonia, as patient afebrile and without increased WBC count. Lasix 40mg IV BID Duonebs q6hr scheduled Incentive Spirometry Consider BiPAP if continued worsening SOB (2) Cardiac enzymes elevated ICD Codes: R74.8 - Abnormal levels of other serum enzymes Status: Acute Plan: Patient found to have elevated cardiac enzymes on admission Troponin 0.19 initially and remained stable. Likely secondary to fluid overload. BNP markedly elevated. On continuous telemetry Patient's outpatient sergeant missile crewman has been contacted - see addendum by Dr. Prado. (3) Aortic stenosis ICD Codes: I35.0 - Nonrheumatic aortic (valve) stenosis Status: Chronic Plan: Patient with known aortic stenosis. Unclear if this is contributing to fluid overload. Await echocardiogram. (4) Status post total hip replacement, right ICD Codes: Z96.641 - Presence of right artificial hip joint Plan: Patient is postop day 3 from right total hip replacement Patient is high risk for thromboembolism, and has been on Eliquis postop. CTA negative for PE U/S bilateral legs: negative Pain medications as ordered. PT as ordered. Records have been requested from other facility where he had hip surgery (5) HTN (hypertension) ICD Codes: I10 - Essential (primary) hypertension Status: Chronic Plan: Pt with lower blood pressure overnight; metoprolol dose has been decreased and terazosin has been held. Monitor BP. (6) CAD (coronary artery disease) ICD Codes: I25.10 - Atherosclerotic heart disease of [place] coronary artery without angina pectoris Status: Chronic Plan: Continue home pravastatin 40 mg at night Continue home aspirin 81 mg daily Patient has sergeant missile crewman as an outpatient, who has been contacted during this admission. (7) Afib ICD Codes: I48.91 - Unspecified atrial fibrillation Status: Chronic Plan: Patient with a history of A. fib with pacemaker EKG on admission showing sinus rhythm Continue home Eliquis 5 mg by mouth twice a day. (8) LAUREL (acute kidney injury) ICD Codes: N17.9 - Acute kidney failure, unspecified Status: Acute Plan: Creatinine elevated at 1.65 on admission --> improved overnight. Renally dose medications as appropriate. Patient may have underlying chronic kidney disease; as creatinine 1.3 on previous admission. (9) Anemia ICD Codes: D64.9 - Anemia, unspecified Status: Chronic Plan: Unclear if acute vs chronic anemia. Pt reports that he was offered but declined a blood transfusion during recent hospitalization for his hip surgery. Initial hemoglobin 8.7 --> 8.7 after 1 U PRBCs. Repeat H/H this afternoon is reassuring. Hemoccult pending, but pt denies any blood in stools. (10) Hypothyroid ICD Codes: E03.9 - Hypothyroidism, unspecified Status: Chronic Plan: History of hypothyroidism Continue home levothyroxine (11) Diabetes mellitus ICD Codes: E11.9 - Type 2 diabetes mellitus without complications Status: Chronic Plan: Hold home metformin in case of need for imaging. Low dose sliding scale. Monitor with bedside glucose. (12) BPH (benign prostatic hyperplasia) ICD Codes: N40.0 - Benign prostatic hyperplasia without lower urinary tract symptoms Status: Chronic Plan: History of BPH Given low blood pressure today, will hold terazosin. May need to restart should urinary symptoms recur or if blood pressure improves. Problem Qualifiers (1) Aortic stenosis: Qualified Codes: I35.0 - Nonrheumatic aortic (valve) stenosis (2) HTN (hypertension): Qualified Codes: I10 - Essential (primary) hypertension (3) CAD (coronary artery disease): Qualified Codes: I25.10 - Atherosclerotic heart disease of [place] coronary artery without angina pectoris (4) Afib: Qualified Codes: I48.2 - Chronic atrial fibrillation (5) Anemia: Qualified Codes: D64.9 - Anemia, unspecified (6) Hypothyroid: Qualified Codes: E03.9 - Hypothyroidism, unspecified (7) Diabetes mellitus: Qualified Codes: E11.9 - Type 2 diabetes mellitus without complications Teresa Tong MD Dec 07, 2017 09:54
[2017-12-07] MEDS: LEVOTHYROXINE SODIUM 50 MCG TAB PO SCH (10:13)
[2017-12-07] MEDS: ASPIRIN EC 81 MG TABEC PO SCH (10:13)
[2017-12-07] MEDS: FUROSEMIDE 40 MG/4 ML VIAL IVP SCH ×2 (10:15→17:13)
[2017-12-07 12:01] LABS: HEMATOCRIT 27.4 % (39.0-51.0); HEMOGLOBIN 9.6 GM/DL (13.0-17.0)
--- NOTE | 2017-12-07 13:54 | HHI.PR ---
Addendum to Inpatient Note Addendum Reason: Additional Documentation Additional Information Spoke with patient's supervisor wall mirror department, Dr. Bolivar. He states that patient has moderate aortic stenosis and his most recent echocardiogram was within the past year. He requests that we diurese the patient with Lasix until he is comfortable and able to breath on RA. He would then like to follow-up with the patient in his office this week. He requests that we continue Eliquis as prescribed by the orthopedic surgeon post-operatively. Yelena Prado MD, R3 Dec 07, 2017 13:54
--- NOTE | 2017-12-07 17:04 | ECHRPT ---
Indication: HEART FAILURE CONCLUSIONS The left ventricular systolic function is low normal with an estimated ejection fraction in the rang e of 50- 55%. Normal left ventricular size. Moderate concentric left ventricular hypertrophy. A pacemaker wire is noted. Trace mitral valve regurgitation. Diffuse calcification of the aortic valve. Trace aortic valve regurgitation. Mild aortic valve stenosis. Aortic valve area is 1.3 cm. Aortic valve mean gradient is 14.6 mmHg. There is mild tricuspid valve regurgitation. The estimated pulmonary arterial pressure is 50.7 mmHg. Trivial pulmonary valve regurgitation. There is a small pericardial effusion present. BP: 99 / 57 HR: 61 Rhythm: Sinus MEASUREMENTS (Male / Female) Normal Values Technical Quality:Good 2D ECHO LV Diastolic Diameter PLAX 3.8 cm 4.2 - 5.9 / 3.9 - 5.3 cm LV Systolic Diameter PLAX 2.9 cm IVS Diastolic Thickness 1.5 cm 0.6 - 1.0 / 0.6 - 0.9 cm LVPW Diastolic Thickness 1.5 cm 0.6 - 1.0 / 0.6 - 0.9 cm LV Relative Wall Thickness 0.8 RV Internal Dim ED PLAX 3.3 cm LVOT Diameter 2.0 cm LA Systolic Diameter LX 3.9 cm 3.0 - 4.0 / 2.7 - 3.8 cm M-MODE Aortic Root Diameter MM 3.5 cm LA Systolic Diameter MM 4.0 cm LA Ao Ratio MM 1.1 AV Cusp Separation MM 1.3 cm DOPPLER AV Peak Velocity 233.0 cm/s AV Peak Gradient 21.7 mmHg AV Mean Gradient 14.6 mmHg AV Velocity Time Integral 46.9 cm AI Peak Velocity 282.0 cm/s AI Peak Gradient 31.8 mmHg AI Pressure Half Time 678.0 ms LVOT Peak Velocity 91.8 cm/s LVOT Peak Gradient 3.4 mmHg LVOT Velocity Time Integral 19.3 cm LVOT Cardiac Index 1691.4 cm/minm AV Area Cont Eq vti 1.3 cm AV Area Cont Eq pk 1.2 cm MV Area PHT 3.1 cm TR Peak Velocity 319.0 cm/s TR Peak Gradient 40.7 mmHg Right Atrial Pressure 10.0 mmHg Pulmonary Artery Systolic Pressu 50.7 mmHg Right Ventricular Systolic Press 50.7 mmHg PV Peak Velocity 74.7 cm/s PV Peak Gradient 2.2 mmHg FINDINGS LEFT VENTRICLE The left ventricular systolic function is low normal with an estimated ejection fraction in the rang e of 50- 55%. Normal left ventricular size. Moderate concentric left ventricular hypertrophy. RIGHT VENTRICLE A pacemaker wire is noted. LEFT ATRIUM The left atrial size is normal. RIGHT ATRIUM The right atrial size is normal. ATRIAL SEPTUM Normal atrial septal thickness without atrial level shunting by limited color doppler interrogation. AORTA The aortic root and proximal ascending aorta are normal in size on limited imaging. MITRAL VALVE Structurally normal mitral valve. Trace mitral valve regurgitation. AORTIC VALVE Trileaflet aortic valve. Diffuse calcification of the aortic valve. Trace aortic valve regurgitation. Mild aortic valve stenosis. Aortic valve area is 1.3 cm. Aortic valve mean gradient is 14.6 mmHg. TRICUSPID VALVE Structurally normal tricuspid valve. There is mild tricuspid valve regurgitation. The estimated pulmonary arterial pressure is 50.7 mmHg. PULMONARY VALVE Trivial pulmonary valve regurgitation. VESSELS The inferior vena cava is normal in size. PERICARDIUM There is a small pericardial effusion present. Joseluis Carranza MD, FACC (Electronically Signed) Final Date:07 December 2017 17:03
[2017-12-07] MEDS: METOPROLOL TARTRATE 25 MG TAB PO SCH (21:00)
--- NOTE | 2017-12-07 22:03 | EKG ---
Date Performed: 12/07/2017 Time Performed: 03:39:36 PTAGE: 82 years EKG: ELECTRONIC ATRIAL PACEMAKER INDETERMINATE AXIS MINIMAL ST DEPRESSION ABNORMAL RHYTHM ECG IN TERPRETATION BASED ON A DEFAULT AGE OF 40 YEARS NO PREVIOUS TRACING DOCTOR: Zay Yen Interpretating Date/Time 12/07/2017 21:59:41
--- NOTE | 2017-12-07 22:09 | EKG ---
Date Performed: 12/06/2017 Time Performed: 20:59:02 PTAGE: 82 years EKG: ATRIAL FIBRILLATION WITH RAPID VENTRICULAR RESPONSE WITH ABERRANT CONDUCTION OR VENTRICULAR PREMATURE COMPLEXES INDETERMINATE AXIS INCOMPLETE RIGHT BUNDLE BRANCH BLOCK MODERATE ST DEPRESSION A BNORMAL QRS-T ANGLE ABNORMAL ECG PREVIOUS TRACING : 12/06/2017 12.39 DOCTOR: Zay Yen Interpretating Date/Time 12/07/2017 22:02:16
--- NOTE | 2017-12-07 23:07 | EKG ---
Date Performed: 12/06/2017 Time Performed: 12:39:08 PTAGE: 82 years EKG: ELECTRONIC ATRIAL PACEMAKER LOW QRS VOLTAGE IN EXTREMITY LEADS INCOMPLETE RIGHT BUNDLE BRAN CH BLOCK MINIMAL ST DEPRESSION ABNORMAL RHYTHM ECG INTERPRETATION BASED ON A DEFAULT AGE OF 40 YEARS PREVIOUS TRACING : 11/01/2010 14.35 DOCTOR: Zay Yen Interpretating Date/Time 12/07/2017 23:04:01
[2017-12-08 00:06] VITALS: PULSE 74
[2017-12-08 02:50] VITALS: BP 114/71; PULSE 145; RESP 20; TEMP 98.5; O2SAT 98
[2017-12-08] MEDS: RESP: ALBUTEROL 2.5 MG/IPRATROPIUM 0.5 MG NEB (SCH) INH ×3 (03:38→12:00)
[2017-12-08] MEDS ORDERED: METOPROLOL TARTRATE 25 MG TAB PO ONE ×2 (04:00→09:00)
--- NOTE | 2017-12-08 05:00 | HHI.PR ---
Addendum to Inpatient Note Addendum Reason: Additional Documentation Additional Information S: Resident team was paged at approximately 0300 by nursing staff for increased heart rate. They're concerned as he has a pacemaker, was around 60-80 bpm throughout the day typically, and state he has a past history of V. tach with necessary cardioversion. Patient was seen and examined. He states "I feel fine" he denies chest pain, palpitations, shortness of breath, left jaw or arm pain, diaphoresis, headache, lightheadedness, changes in vision, nausea, vomiting, fever, chills, abdominal pain, changes in urinary habits. O: T: 98.5 P: 145 RR: 20 BP: 114/71 Pulse had returned to ~60bpm during interview. Short run of tachycardia following exam then return to normal. GENERAL: Laying in bed asleep, comfortable, easily arousable, no acute distress , pleasant demeanor SKIN: Warm and dry. HEAD: Atraumatic. Normocephalic. EYES: Pupils equal and round. No scleral icterus. No injection or drainage. ENT: No nasal bleeding or discharge. Mucous membranes pink and moist. NECK: Trachea midline. No JVD. CARDIOVASCULAR: Regular rate and rhythm. Harsh 3/6 systolic murmur heard best at right upper sternal border. RESPIRATORY: No accessory muscle use. Clear to auscultation. Breath sounds equal bilaterally. GASTROINTESTINAL: Abdomen soft, non-tender, nondistended. Hepatic and splenic margins not palpable. MUSCULOSKELETAL: Extremities without clubbing, cyanosis, or edema. No obvious deformities. NEUROLOGICAL: Awake and alert. No obvious cranial nerve deficits. Motor grossly within normal limits. Normal speech. PSYCHIATRIC: Appropriate mood and affect; insight and judgment normal. A/P 82-year-old male with past history of hypertension, A. fib with pacemaker who demonstrated asymptomatic tachycardia. EKG at the time showed a likely a.flutter , did not visualize V. tach in rhythm strip reviewed. Documented patient had refused his metoprolol earlier in the day, potentially contributing to current signs. Pulse had returned to the 60s following examination. -Administered 12.5 mg by mouth metoprolol which was earlier refused -Advised to contact resident team if patient became symptomatic or had intended sustained tachycardia Sukhwinder Pryor MD R1 Dec 08, 2017 05:00
[2017-12-08 06:45] LABS: AUTOMATED NEUTROPHIL # 3.6 TH/MM3 (1.8-7.7); BASOPHIL % 0.5 % (0.0-2.0); EOSINOPHIL # 0.2 TH/MM3 (0-0.4); EOSINOPHIL % 3.1 % (0.0-4.0); HEMATOCRIT 26.3 % (39.0-51.0); HEMOGLOBIN 9.2 GM/DL (13.0-17.0); LYMPH % 20.7 % (9.0-44.0); LYMPHOCYTE # 1.2 TH/MM3 (1.0-4.8); MEAN CELL VOLUME 87.5 FL (80.0-100.0); MEAN CORPUSCULAR HEMOGLOBIN 30.5 PG (27.0-34.0); MEAN CORPUSCULAR HGB CONC 34.9 % (32.0-36.0); MEAN PLATELET VOLUME 7.6 FL (7.0-11.0); MONO % 11.6 % (0.0-8.0); MONOCYTE # 0.7 TH/MM3 (0-0.9); NEUT % 64.1 % (16.0-70.0); PLATELET COUNT 171 TH/MM3 (150-450); RED CELL DISTRIBUTION WIDTH 13.6 % (11.6-17.2); WHITE BLOOD COUNT 5.7 TH/MM3 (4.0-11.0)
[2017-12-08 07:02] VITALS: BP 106/60; PULSE 61; RESP 18; TEMP 97.8; O2SAT 96
[2017-12-08 07:13] LABS: CALCIUM 7.9 MG/DL (8.5-10.1); CREATININE 1.21 MG/DL (0.60-1.30)
[2017-12-08 07:32] VITALS: O2SAT 92
[2017-12-08] MEDS: INSULIN ASPART SUPPLEMENTAL SCALE SQ SCH ×2 (08:00→11:57)
[2017-12-08] MEDS: METOPROLOL TARTRATE 25 MG TAB PO SCH (08:14)
[2017-12-08] MEDS ORDERED: METOPROLOL TARTRATE 25 MG TAB PO SCH (09:00)
[2017-12-08] MEDS: TERAZOSIN HCL 1 MG CAP PO SCH (09:13)
[2017-12-08] MEDS: DOCUSATE SODIUM 50 MG/SENNA 8.6 MG TAB PO SCH (09:13)
[2017-12-08] MEDS: LEVOTHYROXINE SODIUM 50 MCG TAB PO SCH (09:13)
[2017-12-08] MEDS: APIXABAN 5 MG TABLET PO SCH (09:14)
[2017-12-08] MEDS: SODIUM CHLORIDE 0.9% FLUSH 10 ML FLUSH IV FLUSH SCH (09:14)
[2017-12-08] MEDS: ASPIRIN EC 81 MG TABEC PO SCH (09:14)
[2017-12-08] MEDS: FUROSEMIDE 40 MG/4 ML VIAL IVP SCH (09:15)
[2017-12-08] MEDS ORDERED: METOPROLOL TARTRATE 50 MG TAB PO PRN (09:15)
[2017-12-08] MEDS ORDERED: POTASSIUM CHLORIDE 20 MEQ CONTROLLED RELEASE TAB PO ONE (10:30)
--- NOTE | 2017-12-08 11:38 | HHI.FF ---
Face to Face Verification Diagnosis: (1) Status post total hip replacement, right (2) Diabetes mellitus (3) CAD (coronary artery disease) (4) Aortic stenosis (5) Respiratory distress Physical Therapy Order: Evaluate and Treat, Improve ambulation, Strength and gait training Home Health Nursing Order: Medical education Wound care and dressing changes Nursing assessment with vital signs I have seen patient Nadira Chavez on 12/08/17. My clinical findings support the need for the requested home health care services because: Patient has SOB Deconditioned w/ increased weakness High risk of falls I certify that my clinical findings support that this patient is homebound because: Post-op weakness Unsteady gait/balance Nirmal Pham MD R1 Dec 08, 2017 11:37
--- NOTE | 2017-12-08 11:58 | HHI.FPPN ---
Subjective Remarks Resident team page overnight for elevated heart rate in the 140s. Patient was asymptomatic at that time and it was noted that he did not receive his evening dose of metoprolol 12.5 mg. Telemetry showed atrial flutter for roughly 2-3 minutes and patient's heart rate returned to the 70s. This morning he is again tachycardic into the 150s and 160s. He remains asymptomatic with no chest pain, shortness of breath or chest discomfort. Patient states that he normally takes metoprolol 50 mg twice daily. This dose was decreased to 12.5 mg twice daily with concerns for potential new onset CHF as well as hypotension. Patient received another 12.5 mg dose as well as a 25 mg dose at 09 100. Patient's heart rate improved to the 70s and 80s and was sustained for rest of the morning. Patient's shortness of breath has improved significantly since admission and he is maintaining oxygen saturations on room air. Also reporting abdominal swelling, peripheral edema improved and back to baseline. (Nirmal Pham MD R1) Objective Vitals Vital Signs Date Time Temp Pulse Resp B/P (MAP) Pulse Ox O2 Delivery O2 Flow Rate FiO2 12/08/17 07:32 92 21 12/08/17 07:02 97.8 61 18 106/60 (75) 96 12/08/17 02:50 98.5 145 20 114/71 (85) 98 12/08/17 00:06 74 12/07/17 23:29 98.0 80 20 105/60 (75) 95 12/07/17 20:40 96 Nasal Cannula 2.00 12/07/17 20:00 98.2 71 18 93/52 (66) 97 12/07/17 20:00 82 12/07/17 16:10 98.3 71 19 103/60 (74) 99 12/07/17 12:13 98.0 65 21 111/70 (84) 96 I/O 12/07/17 12/07/17 12/07/17 12/08/17 12/08/17 12/08/17 07:00 15:00 23:00 07:00 15:00 23:00 Intake Total 600 ml Output Total 200 ml Balance -200 ml 600 ml Intake Oral 600 ml Output Urine Total 200 ml Stool Total 0 ml # Voids 1 1 # Bowel Movements 0 1 (Nirmal Pham MD R1) Result Diagram: 12/08/1760912/08/17609 Objective Remarks GENERAL: in NAD, no resp distress, nontoxic. Talks in full sentences. Currently on room air HEENT: NCAT, EOMI, no scleral icterus, no conjunctival injection. MMM. No nasal drainage. Nasal cannula in place. NECK: Supple, No meningeal signs. CV: Tachycardic to the 150s, irregular rhythm. CHEST/PULM: Clear to auscultation bilaterally No retractions, no accessory muscle use. ABD/GI: +BS, soft, nondistended EXT: No edema appreciated on today's exam. No calf tenderness. 2+ DP pulses. NEURO: Awake, alert. Normal muscle tone. Grossly nonfocal. SKIN: No rash, no jaundice. PSYCH: Mood and affect are appropriate. Speech fluent and sensical. (Nirmal Pham MD R1) A/P Assessment and Plan 82yo gentleman with past medical history of aortic stenosis, hypertension, hyperlipidemia, stroke in 2012 without residual effects, A. fib with pacemaker, status post ablation in 2017 for V. tach, hypothyroidism, type 2 diabetes was discharged from [facility] on 12/03 following a total right hip replacement who was admitted for progressive shortness of breath, increased oxygen demand and fluid retention. Shortness of breath and fluid retention have improved with diuresis since admission. We are requiring oxygen, lungs are clear to auscultation, no longer in fluid overload. Had several episodes of elevated heart rate after he did not receive his evening dose of metoprolol, normalized after resuming home dosages of 50 mg metoprolol tartrate. Safe for discharge with close follow-up with cardiology. Discharge Planning Discharge today (Nirmal Pham MD R1) Attending Attestation patient seen and examined, discussed with resident team. I agree with assessment and management as documented and discussed with me. Pt feels breathing has improved. He is maintaining sats on room air. He is seen with , son, and sister at bedside. All of their questions answered to the best of my abilities. [place] paperwork completed for son. Discharge home today. Greater than 30 minutes spent counselling and coordinating care at discharge. (Teresa Tong MD) Problem List: (1) Respiratory distress ICD Codes: R06.03 - Acute respiratory distress Status: Acute Plan: Patient presented with worsening shortness of breath, fluid retention after recent right total hip replacement on 12/03. CXR demonstrates pulmonary edema. At presentation, pt with O2 sat of 83% on room air, and has required 3lpm by nasal cannula. CTA on admission negative for PE, showing small bilateral pleural effusions, pericardial effusion and bilateral parenchymal infiltrates vs edema. BNP markedly elevated, >1500 ACS workup negative, echocardiogram reassuring with checking fraction 55 - 60%, mild aortic stenosis Initially required 3 L nasal cannula Lasix 40mg IV BID Duonebs q6hr scheduled Incentive Spirometry On 12/08 patient was maintaining saturations on room air, no longer short of breath, no physical exam findings suggesting fluid overload Patient safe for discharge, will prescribe Lasix 40 mg twice daily for the next 2-3 days Close follow with appellate law clerk (2) Cardiac enzymes elevated ICD Codes: R74.8 - Abnormal levels of other serum enzymes Status: Acute Plan: Patient found to have elevated cardiac enzymes on admission Troponin 0.19 initially and remained stable. BNP markedly elevated. Patient's outpatient appellate law clerk has been contacted - see addendum by Dr. Prado. (3) Aortic stenosis ICD Codes: I35.0 - Nonrheumatic aortic (valve) stenosis Status: Chronic Plan: Patient with known aortic stenosis. Unclear if this is contributing to fluid overload. Echocardiogram showed mild aortic stenosis Follow-up with appellate law clerk (4) Afib ICD Codes: I48.91 - Unspecified atrial fibrillation Status: Chronic Plan: Patient with a history of A. fib with pacemaker EKG on admission showing sinus rhythm Continue home Eliquis 5 mg by mouth twice a day. The personal financial counselor of 12/08 patient developed tachycardia in the 140s up to 170s, telemetry showing atrial flutter Patient was asymptomatic at that time Patient had not received evening dose of metoprolol 12.5 mg Primary team resumed home dosage of metoprolol 50 mg twice a day, heart rate improved to baseline after receiving the full 50 mg on the morning of 12/08 Follow-up with cardiology (5) Status post total hip replacement, right ICD Codes: Z96.641 - Presence of right artificial hip joint Plan: Patient is postop day 3 from right total hip replacement Patient is high risk for thromboembolism, and has been on Eliquis postop. CTA negative for PE U/S bilateral legs: negative Pain medications as ordered. PT as ordered. Home PT/home nursing ordered on discharge (6) HTN (hypertension) ICD Codes: I10 - Essential (primary) hypertension Status: Chronic Plan: Pt with lower blood pressure since admission with systolic blood pressures ranging from the 100s to 110s Continue to hold terazosin for next 5 days, can resume at 2 mg nightly Initially decrease metoprolol dose due to lower blood pressures as well as concern for new onset CHF Resuming home dose of Toprol 50 mg twice daily at discharge (7) CAD (coronary artery disease) ICD Codes: I25.10 - Atherosclerotic heart disease of [place] coronary artery without angina pectoris Status: Chronic Plan: Continue home pravastatin 40 mg at night Continue home aspirin 81 mg daily Patient has appellate law clerk as an outpatient, who has been contacted during this admission. (8) LAUREL (acute kidney injury) ICD Codes: N17.9 - Acute kidney failure, unspecified Status: Acute Plan: Creatinine elevated at 1.65 on admission --> improved overnight. Renally dose medications as appropriate. Patient may have underlying chronic kidney disease; as creatinine 1.3 on previous admission. (9) Anemia ICD Codes: D64.9 - Anemia, unspecified Status: Chronic Plan: Unclear if acute vs chronic anemia. Pt reports that he was offered but declined a blood transfusion during recent hospitalization for his hip surgery. Initial hemoglobin 8.7 --> 8.7 after 1 U PRBCs. Hemoglobin has increased to 9.6 and remained stable Repeat CBC as outpatient in 2-3 days . (10) Hypothyroid ICD Codes: E03.9 - Hypothyroidism, unspecified Status: Chronic Plan: History of hypothyroidism Continue home levothyroxine (11) Diabetes mellitus ICD Codes: E11.9 - Type 2 diabetes mellitus without complications Status: Chronic Plan: Hold home metformin in case of need for imaging. Low dose sliding scale. Monitor with bedside glucose. (12) BPH (benign prostatic hyperplasia) ICD Codes: N40.0 - Benign prostatic hyperplasia without lower urinary tract symptoms Status: Chronic Plan: History of BPH Given low blood pressure today, will hold terazosin. Patient has had no trouble urinating during this hospitalization Will hold for the next 5 days, can resume 2 mg at night after that (Nirmal Pham MD R1) Problem Qualifiers (1) Aortic stenosis: Qualified Codes: I35.0 - Nonrheumatic aortic (valve) stenosis (2) Afib: Qualified Codes: I48.2 - Chronic atrial fibrillation (3) HTN (hypertension): Qualified Codes: I10 - Essential (primary) hypertension (4) CAD (coronary artery disease): Qualified Codes: I25.10 - Atherosclerotic heart disease of [place] coronary artery without angina pectoris (5) Anemia: Qualified Codes: D64.9 - Anemia, unspecified (6) Hypothyroid: Qualified Codes: E03.9 - Hypothyroidism, unspecified (7) Diabetes mellitus: Qualified Codes: E11.9 - Type 2 diabetes mellitus without complications Nirmal Pham MD R1 Dec 08, 2017 11:58 Teresa Tong MD Dec 08, 2017 20:53
[2017-12-08 12:18] VITALS: BP 93/55; PULSE 55; RESP 20; TEMP 98.2; O2SAT 97
--- NOTE | 2017-12-08 12:24 | HHI.DS ---
Discharge Summary Admission Date Dec 06, 2017 at 15:59 Admitting Diagnosis Volume overload, anemia, shortness of breath (1) Respiratory distress Plan: Patient presented with worsening shortness of breath, fluid retention after recent right total hip replacement on 12/03. CXR demonstrates pulmonary edema. At presentation, pt with O2 sat of 83% on room air, and has required 3lpm by nasal cannula. CTA on admission negative for PE, showing small bilateral pleural effusions, pericardial effusion and bilateral parenchymal infiltrates vs edema. BNP markedly elevated, >1500 ACS workup negative, echocardiogram reassuring with checking fraction 55 - 60%, mild aortic stenosis Initially required 3 L nasal cannula Lasix 40mg IV BID Duonebs q6hr scheduled Incentive Spirometry On 12/08 patient was maintaining saturations on room air, no longer short of breath, no physical exam findings suggesting fluid overload Patient safe for discharge, will prescribe Lasix 40 mg twice daily for the next 2-3 days Close follow with technology services manager ICD Codes: R06.03 - Acute respiratory distress Status: Acute (2) Cardiac enzymes elevated Plan: Patient found to have elevated cardiac enzymes on admission Troponin 0.19 initially and remained stable. BNP markedly elevated. Patient's outpatient technology services manager has been contacted - see addendum by Dr. Prado. ICD Codes: R74.8 - Abnormal levels of other serum enzymes Status: Acute (3) Aortic stenosis Plan: Patient with known aortic stenosis. Unclear if this is contributing to fluid overload. Echocardiogram showed mild aortic stenosis Follow-up with technology services manager ICD Codes: I35.0 - Nonrheumatic aortic (valve) stenosis Status: Chronic (4) Afib Plan: Patient with a history of A. fib with pacemaker EKG on admission showing sinus rhythm Continue home Eliquis 5 mg by mouth twice a day. 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 patient developed tachycardia in the 140s up to 170s, telemetry showing atrial flutter Patient was asymptomatic at that time Patient had not received evening dose of metoprolol 12.5 mg Primary team resumed home dosage of metoprolol 50 mg twice a day, heart rate improved to baseline after receiving the full 50 mg on the morning of 12/08 Follow-up with cardiology ICD Codes: I48.91 - Unspecified atrial fibrillation Status: Chronic (5) Status post total hip replacement, right Plan: Patient is postop day 3 from right total hip replacement Patient is high risk for thromboembolism, and has been on Eliquis postop. CTA negative for PE U/S bilateral legs: negative Pain medications as ordered. PT as ordered. Home PT/home nursing ordered on discharge ICD Codes: Z96.641 - Presence of right artificial hip joint (6) HTN (hypertension) Plan: Pt with lower blood pressure since admission with systolic blood pressures ranging from the 100s to 110s Continue to hold terazosin for next 5 days, can resume at 2 mg nightly Initially decrease metoprolol dose due to lower blood pressures as well as concern for new onset CHF Resuming home dose of Toprol 50 mg twice daily at discharge ICD Codes: I10 - Essential (primary) hypertension Status: Chronic (7) CAD (coronary artery disease) Plan: Continue home pravastatin 40 mg at night Continue home aspirin 81 mg daily Patient has technology services manager as an outpatient, who has been contacted during this admission. ICD Codes: I25.10 - Atherosclerotic heart disease of [place] coronary artery without angina pectoris Status: Chronic (8) LAUREL (acute kidney injury) Plan: Creatinine elevated at 1.65 on admission --> improved overnight. Renally dose medications as appropriate. Patient may have underlying chronic kidney disease; as creatinine 1.3 on previous admission. ICD Codes: N17.9 - Acute kidney failure, unspecified Status: Acute (9) Anemia Plan: Unclear if acute vs chronic anemia. Pt reports that he was offered but declined a blood transfusion during recent hospitalization for his hip surgery. Initial hemoglobin 8.7 --> 8.7 after 1 U PRBCs. Hemoglobin has increased to 9.6 and remained stable Repeat CBC as outpatient in 2-3 days . ICD Codes: D64.9 - Anemia, unspecified Status: Chronic (10) Hypothyroid Plan: History of hypothyroidism Continue home levothyroxine ICD Codes: E03.9 - Hypothyroidism, unspecified Status: Chronic (11) Diabetes mellitus Plan: Hold home metformin in case of need for imaging. Low dose sliding scale. Monitor with bedside glucose. ICD Codes: E11.9 - Type 2 diabetes mellitus without complications Status: Chronic (12) BPH (benign prostatic hyperplasia) Plan: History of BPH Given low blood pressure today, will hold terazosin. Patient has had no trouble urinating during this hospitalization Will hold for the next 5 days, can resume 2 mg at night after that ICD Codes: N40.0 - Benign prostatic hyperplasia without lower urinary tract symptoms Status: Chronic Brief History 82 yo male presenting to the ED progressive SOB, fluid retention. Just had R hip replaced at [facility] on 12/03 and was discharged on 12/05. He developed some SOB during that hospitalization and since he was discharged he has developed worsening SOB, worse on exertion. Decreased appetite, decreased fluid intake, decreased urinary output, fatigued. Feels completely exhausted even with getting out of bed. Abdomen is more distended, legs are more swollen since the surgery. Prior to the surgery, he was very active and could use a rowing machine at the gym for 45 minutes three times per week with no SOB. He did experience some hypotension during the hospitalization. He was offered a blood transfusion at that time but he refused. Overnight his states that he was gasping for air during his sleep, usually uses 2 pillows with no change recently. CBC/BMP: 12/08/17 0610 12/08/17 0610 Significant Findings Laboratory Tests Test 12/06/17 13:00 12/06/17 17:30 12/06/17 20:42 12/07/17 02:46 Red Blood Count 2.82 MIL/MM3 (4.50-5.90) 2.87 MIL/MM3 (4.50-5.90) Hemoglobin 8.7 GM/DL (13.0-17.0) 8.7 GM/DL (13.0-17.0) Hematocrit 24.9 % (39.0-51.0) 24.8 % (39.0-51.0) Neutrophils (%) (Auto) 86.4 % (16.0-70.0) 73.1 % (16.0-70.0) Lymphocytes (%) (Auto) 7.2 % (9.0-44.0) Neutrophils # (Auto) 9.4 TH/MM3 (1.8-7.7) Lymphocytes # (Auto) 0.8 TH/MM3 (1.0-4.8) Blood Urea Nitrogen 33 MG/DL (7-18) 31 MG/DL (7-18) Creatinine 1.65 MG/DL (0.60-1.30) Random Glucose 206 MG/DL (74-106) 115 MG/DL (74-106) Total Protein 6.3 GM/DL (6.4-8.2) 5.9 GM/DL (6.4-8.2) Albumin 2.9 GM/DL (3.4-5.0) 2.7 GM/DL (3.4-5.0) Aspartate Amino Transf (AST/SGOT) 54 U/L (15-37) 43 U/L (15-37) Sodium Level 132 MEQ/L (136-145) Potassium Level 5.4 MEQ/L (3.5-5.1) Estimat Glomerular Filtration Rate 40 ML/MIN (>89) 58 ML/MIN (>89) Total Creatine Kinase 933 U/L (39-308) 852 U/L (39-308) 670 U/L (39-308) Creatine Kinase MB 10.4 NG/ML (0.5-3.6) 8.4 NG/ML (0.5-3.6) 6.3 NG/ML (0.5-3.6) Troponin I 0.19 NG/ML (0.02-0.05) 0.16 NG/ML (0.02-0.05) 0.17 NG/ML (0.02-0.05) B-Type Natriuretic Peptide 1514 PG/ML (0-100) 1576 PG/ML (0-100) Urine Specific [place] 1.043 (1.002-1.035) Urine Protein 30 mg/dL (NEG-TRACE) Urine Ketones TRACE mg/dL (NEG) Urine Occult Blood SMALL (NEG) Urine RBC 5 /hpf (0-3) Urine Mucus FEW /lpf (OCC) Platelet Count 143 TH/MM3 (150-450) Monocytes (%) (Auto) 9.7 % (0.0-8.0) Platelet Estimate LOW (NORMAL) Ovalocytes 1+ (NORMAL) Calcium Level 7.8 MG/DL (8.5-10.1) Alkaline Phosphatase 40 U/L (45-117) Test 12/07/17 11:45 12/08/17 06:10 Hemoglobin 9.6 GM/DL (13.0-17.0) 9.2 GM/DL (13.0-17.0) Hematocrit 27.4 % (39.0-51.0) 26.3 % (39.0-51.0) Red Blood Count 3.00 MIL/MM3 (4.50-5.90) Monocytes (%) (Auto) 11.6 % (0.0-8.0) Blood Urea Nitrogen 27 MG/DL (7-18) Random Glucose 160 MG/DL (74-106) Calcium Level 7.9 MG/DL (8.5-10.1) Potassium Level 3.3 MEQ/L (3.5-5.1) Estimat Glomerular Filtration Rate 58 ML/MIN (>89) PE at Discharge GENERAL: in NAD, no resp distress, nontoxic. Talks in full sentences. Currently on room air HEENT: NCAT, EOMI, no scleral icterus, no conjunctival injection. MMM. No nasal drainage. Nasal cannula in place. NECK: Supple, No meningeal signs. CV: Tachycardic to the 150s, irregular rhythm. CHEST/PULM: Clear to auscultation bilaterally No retractions, no accessory muscle use. ABD/GI: +BS, soft, nondistended EXT: No edema appreciated on today's exam. No calf tenderness. 2+ DP pulses. NEURO: Awake, alert. Normal muscle tone. Grossly nonfocal. SKIN: No rash, no jaundice. PSYCH: Mood and affect are appropriate. Speech fluent and sensical. Nirmal Pham MD R1 Dec 08, 2017 12:24
[2017-12-08] MEDS ORDERED: TERA2CAP3 PO (12:33)
[2017-12-08] MEDS ORDERED: POTA10TA2 PO (12:33)
[2017-12-08] MEDS ORDERED: FURO1TAB62 PO (12:33)
--- NOTE | 2017-12-08 12:33 | HHI.DCPOC ---
Discharge Care Plan Diagnosis: (1) Respiratory distress (2) Diabetes mellitus (3) Hypothyroid (4) Aortic stenosis (5) Status post total hip replacement, right Goals to Promote Your Health * To prevent worsening of your condition and complications * To maintain your health at the optimal level Directions to Meet Your Goals Take your medications as prescribed Follow your dietary instruction Follow activity as directed Keep your appointments as scheduled Take your immunizations and boosters as scheduled If your symptoms worsen call your PCP, if no PCP go to Urgent Care Center or Emergency Room Smoking is Dangerous to Your Health. Avoid second hand smoke Call the 24-hour hour crisis hotline for domestic abuse at Nirmal Pham MD R1 Dec 08, 2017 12:33
[2017-12-08 14:09] VITALS: RESP 20
--- NOTE | 2017-12-08 15:17 | EKG ---
Date Performed: 12/08/2017 Time Performed: 03:02:58 PTAGE: 82 years EKG: ATRIAL FLUTTER/TACHYCARDIA WITH RAPID VENTRICULAR RESPONSE WITH ABERRANT CONDUCTION OR VENT RICULAR PREMATURE COMPLEXES INCOMPLETE RIGHT BUNDLE BRANCH BLOCK ANTEROSEPTAL MYOCARDIAL INFARCTION W hen compared to previous tracing, patient is now in an atrial Flutter, previously showed a paced rhyt hm. ABNORMAL ECG PREVIOUS TRACING : 12/07/2017 03.39 DOCTOR: Atul Adams Interpretating Date/Time 12/08/2017 15:16:43
[2017-12-08] MEDS ORDERED: METOPROLOL TARTRATE 50 MG TAB PO SCH (21:00)
== END 2017-12-08 16:18 | disposition home health service (06) ==
LOC: NEPE 12:27 → NEDA 15:59 → NEPFCDU 21:24
PROVIDERS: ADMIT Family Medicine; ATTEND Family Medicine
DX: R06.03 Acute respiratory distress (principal); R06.82 Tachypnea, not elsewhere classified; I45.10 Unspecified right bundle-branch block; R94.31 Abnormal electrocardiogram [ECG] [EKG]; I48.92 Unspecified atrial flutter; R00.0 Tachycardia, unspecified; R74.8 Abnormal levels of other serum enzymes; I95.9 Hypotension, unspecified; I25.10 Atherosclerotic heart disease of native coronary artery without angina pectoris; I11.0 Hypertensive heart disease with heart failure; I50.9 Heart failure, unspecified; I48.2 Chronic atrial fibrillation; E78.00 Pure hypercholesterolemia, unspecified; I35.0 Nonrheumatic aortic (valve) stenosis; N17.9 Acute kidney failure, unspecified; E03.9 Hypothyroidism, unspecified; E11.9 Type 2 diabetes mellitus without complications; D64.9 Anemia, unspecified; N40.0 Benign prostatic hyperplasia without lower urinary tract symptoms; M19.90 Unspecified osteoarthritis, unspecified site; Z86.73 Personal history of transient ischemic attack (TIA), and cerebral infarction without residual deficits; Z95.0 Presence of cardiac pacemaker; Z87.891 Personal history of nicotine dependence; Z79.01 Long term (current) use of anticoagulants; Z96.641 Presence of right artificial hip joint; Z79.899 Other long term (current) drug therapy
CPT/HCPCS: 36430; 71045; 71046; 71275; 80048; 80053; 80307; 81001; 82272; 82550; 82552; 82948; 83735; 83880; 84443; 84484; 85014; 85018; 85025; 85610; 85730; 86850; 86900; 86901; 86920; 93005; 93306; 93970; 94150; 94640; 94664; 96374; 97110; 97163; 97530; 99285; G0378; G8987; G8988; J1815; J1940; J7050; P9016; Q9967